=== PATIENT | female | born 1940 | race Caucasian/White ===

== ENCOUNTER 2020-05-19 07:09 | Outpatient (REF) | payer MEDICARE, OTHER, SELFPAY ==
[2020-05-19 07:59] LABS: MANUAL DIFF FLAG NO
[2020-05-19 08:01] LABS: Basophils Percent Auto 0.5 % (0-2); Eosinophils Absolute Auto 0.2 X10*3/uL (0.0-0.4); Eosinophils Percent Auto 2.1 % (0-4); Hematocrit 38.6 % (37-47); Hemoglobin 12.9 g/dl (12.0-16.0); Imm Gran Abs Auto 0.02 X10*3/uL (0.00-0.03); Imm Gran Pct Auto 0.3 % (0.0-0.4); Mean Corpuscular HGB Conc 33.4 g/dl (31.0-35.0); Mean Corpuscular Volume 92.8 fL (80-98); Mean Platelet Volume 10.9 fL (9.4-12.3); Monocytes Absolute Auto 0.7 X10*3/uL (0.1-1.2); Monocytes Percent Auto 8.6 % (2-11); Neutrophils Absolute Auto 4.8 X10*3/uL (2.0-8.3); Neutrophils Percent Auto 62.5 % (45-73); Platelet Count 189 X10*3/uL (160-400); Red Blood Count 4.16 X10*6/uL (4.20-5.50); Red Cell Distribution Width 12.2 % (11.0-16.0); White Blood Count 7.7 X10*3/uL (4.8-10.8)
[2020-05-19 08:29] LABS: Alanine Aminotransferase 16 U/L (0-31); Albumin Level 4.2 g/dL (3.5-5.0); Alkaline Phosphatase 72 U/L (39-117); Anion Gap 14 (12-20); Aspartate Amino Transferase 14 U/L (5-31); Bilirubin Total 0.6 mg/dL (0.0-1.0); Blood Urea Nitrogen 15 mg/dL (9-16); Carbon Dioxide 26 mmol/L (22-29); Chloride 105 mmol/L (96-108); Cholesterol 243 mg/dL; Estimated Glomerular Filt Rate > 60; Glucose Fasting 94 mg/dL (60-99); HDL Cholesterol 78 mg/dL; LDL Cholesterol Calculated 150 mg/dl; Potassium 4.3 mmol/l (3.3-5.1); Sodium 141 mmol/L (135-145); Triglycerides 79 mg/dL
[2020-05-19 08:52] LABS: T4 Thyroxine 6.1 ug/dL (4.5-12.0); Thyroid Stimulating Hormone 1.69 uIU/mL (0.32-4.0); Vitamin D 25-OH Total 46.8 ng/mL (>30)
[2020-05-19 10:09] LABS: Folate 16.3 ng/mL (> or = 4.0); Vitamin B12 1073 pg/mL (200-900)
== END 2020-05-19 07:10 | disposition home or self-care (01) ==
LOC: HO.LAB 07:09
PROVIDERS: PCP Internal Medicine; Visit Provider Internal Medicine
DX: R35.0 Frequency of micturition (principal); E53.8 Deficiency of other specified B group vitamins
CPT/HCPCS: 36415; 80053; 80061; 82306; 82607; 82746; 84436; 84443; 85025

== ENCOUNTER 2020-06-09 09:32 | Outpatient (REF) | payer MEDICARE, OTHER, SELFPAY ==
--- NOTE | 2020-06-09 | MM_ITS ---
EXAMINATION: MM SCREENING DIGITAL BREAST TOMOSYNTHESIS, BILATERAL CLINICAL INFORMATION: Screening. Asymptomatic. The lifetime risk of breast cancer based on the Tyrer-Cuzick Model is 3%. COMPARISON: Mammography: 02/20/2019, 02/05/2018, 12/13/2016 TECHNIQUE: Digital breast tomosynthesis is performed in both the craniocaudal and mediolateral oblique views along with computer-aided detection (CAD). Synthesized 2D images are generated from the tomosynthesis. FINDINGS: There are scattered areas of fibroglandular density (ACR BI-RADS breast composition Category b). Parenchymal pattern is similar to prior studies. Again, there are dermal lesions overlying both breasts. Nodular asymmetry mid upper outer right breast is stable from prior studies. There is no significant mass, architectural abnormality, or abnormal calcifications. No significant changes. MM/MM tomosynthesis screening BI IMPRESSION: No significant changes from prior studies. ASSESSMENT: BI-RADS 2: Benign RECOMMENDATION: Routine annual mammography screening. This patient's information was entered into a reminder system with a target due date for their next mammogram.
== END 2020-06-09 09:33 | disposition home or self-care (01) ==
LOC: HO.MAMMO 09:32
PROVIDERS: PCP Internal Medicine; Visit Provider Internal Medicine
DX: Z12.31 Encounter for screening mammogram for malignant neoplasm of breast (principal)
CPT/HCPCS: 77063; 77067

== ENCOUNTER 2020-11-23 07:14 | Outpatient (REF) | payer MEDICARE, OTHER, SELFPAY ==
[2020-11-23 09:17] LABS: Alanine Aminotransferase 15 U/L (0-31); Albumin Level 4.2 g/dL (3.5-5.0); Alkaline Phosphatase 87 U/L (39-117); Anion Gap 14 (12-20); Aspartate Amino Transferase 16 U/L (5-31); Bilirubin Total 0.5 mg/dL (0.0-1.0); Blood Urea Nitrogen 20 mg/dL (9-16); Calcium 9.4 mg/dL (8.4-10.2); Carbon Dioxide 25 mmol/L (22-29); Chloride 107 mmol/L (96-108); Cholesterol 226 mg/dL; Estimated Glomerular Filt Rate > 60; Glucose Random 91 mg/dL (60-115); HDL Cholesterol 66 mg/dL; LDL Cholesterol Calculated 149 mg/dl; Potassium 4.4 mmol/L (3.3-5.1); Sodium 142 mmol/L (135-145); Total Protein 6.9 g/dL (6.5-8.0); Triglycerides 59 mg/dL
== END 2020-11-23 07:15 | disposition home or self-care (01) ==
LOC: HO.LAB 07:14
PROVIDERS: PCP Internal Medicine; Visit Provider Internal Medicine
DX: E78.00 Pure hypercholesterolemia, unspecified (principal)
CPT/HCPCS: 36415; 80053; 80061

== ENCOUNTER 2020-12-20 08:56 | Outpatient (REF) | payer MEDICARE, OTHER, SELFPAY ==
--- NOTE | ~2020-12-20 | MM_ITS ---
EXAMINATION: BONE DENSITOMETRY CLINICAL INDICATION: Age-related osteoporosis without current pathological fracture. COMPARISON: Previous BD dated 11/11/2018 and remote prior BD dated 03/24/2009. TECHNIQUE: Using a [employer] DXA System (software version: 13.1) manufactured by [employer], dual-energy x-ray absorptiometry was performed of the lumbar spine and left hip. The images are of good technical quality. Summary results are attached. FINDINGS: AP SPINE L1-L4: Current: BMD 0.953 g/cm2, Z-score 0.2, T-score -1.9, osteopenia, 2.2% decrease from previous, 2.2% decrease from remote prior 2008 (<5% change is not significant). Prior 2018: BMD 0.974 g/cm2. 2008: BMD 0.974 g/cm2. LEFT FEMUR, NECK: Current: BMD 0.741 g/cm2, Z-score 0.2, T-score -2.1, osteopenia. Prior 2018: BMD 0.783 g/cm2. 2008: BMD 0.870 g/cm2. LEFT FEMUR, TOTAL: Current: BMD 0.850 g/cm2, Z-score 1.0, T-score -1.2, osteopenia, 7.8% decrease from previous, 17.2% decrease from remote prior 2008 (<5% change is not significant). Prior 2018: BMD 0.922 g/cm2. 2008: BMD 1.027 g/cm2. IDENTIFIED RISK FACTORS: Height loss, menopause. HISTORY OF FRACTURE: None listed. MEDICATIONS: Calcium supplements or multivitamin, vitamin D. MM/XR DEXA axial skeleton IMPRESSION: 1. DIAGNOSIS: Osteopenia based on the lowest T-score value of -2.1 in the femoral neck applying World Health Organization criteria. 2. 10-YEAR FRACTURE RISK PREDICTION, FRAX: Major osteoporotic fracture (clinical spine, forearm, hip or shoulder) 15.4%. Hip fracture 5.0%. 3. Treatment Recommendations: NOF guidelines recommend consideration for treatment in postmenopausal women and men age 50 and older presenting with the following: -A hip or vertebral (clinical or morphometric) fracture. -T-score less than or equal to -2.5 at the femoral neck or spine after appropriate evaluation to exclude secondary causes. -Low bone mass at the hip or spine and a 10-year fracture probability by FRAX of greater than or equal to 3% for hip fracture or greater than or equal to 20% for major osteoporotic fracture based on the [place] adapted WHO algorithm. 4. Other Recommendations: All treatment decisions require clinical judgment and consideration of individual patient factors, including patient preferences, comorbidities, previous drug use, risk factors not captured in the FRAX model (e.g. frailty, falls, vitamin D deficiency, increased bone turnover, interval significant decline in bone density) and possible under or overestimation of fracture risk by FRAX. Additional medical evaluation for secondary cause of low bone mineral density may be appropriate. FUTURE SCAN RECOMMENDATION: People with diagnosed cases of osteoporosis or at high risk for fracture should have regular bone mineral density tests. For patients eligible for Medicare, routine testing is allowed once every 2 years. The testing frequency can be increased to one year for patients who have rapidly progressing disease, those who are receiving or discontinuing medical therapy to restore bone mass, or have additional risk factors.
== END 2020-12-20 08:57 | disposition home or self-care (01) ==
LOC: HO.MAMMO 08:56
PROVIDERS: PCP Internal Medicine; Visit Provider Internal Medicine
DX: Z13.820 Encounter for screening for osteoporosis (principal); M80.00XS Age-related osteoporosis with current pathological fracture, unspecified site, sequela; Z78.0 Asymptomatic menopausal state
CPT/HCPCS: 77080

== ENCOUNTER 2021-02-23 07:20 | Outpatient (REF) | payer MEDICARE, OTHER, SELFPAY ==
[2021-02-23 07:34] LABS: MANUAL DIFF FLAG NO
[2021-02-23 08:33] LABS: Basophils Percent Auto 0.5 % (0-2); Eosinophils Absolute Auto 0.2 X10*3/uL (0.0-0.4); Hematocrit 37.2 % (37-47); Hemoglobin 12.5 g/dl (12.0-16.0); Imm Gran Abs Auto 0.02 X10*3/uL (0.00-0.03); Imm Gran Pct Auto 0.2 % (0.0-0.4); Lymphocytes Percent Auto 25.2 % (20-40); Mean Corpuscular HGB Conc 33.6 g/dl (31.0-35.0); Mean Corpuscular Hemoglobin 30.7 pg (27.0-33.0); Mean Corpuscular Volume 91.4 fL (80-98); Monocytes Absolute Auto 0.7 X10*3/uL (0.1-1.2); Monocytes Percent Auto 8.1 % (2-11); Neutrophils Absolute Auto 5.2 X10*3/uL (2.0-8.3); Platelet Count 169 X10*3/uL (160-400); Red Blood Count 4.07 X10*6/uL (4.20-5.50); Red Cell Distribution Width 12.3 % (11.0-16.0); White Blood Count 8.1 X10*3/uL (4.8-10.8)
[2021-02-23 09:02] LABS: Alanine Aminotransferase 17 U/L (0-31); Albumin Level 4.3 g/dL (3.5-5.0); Alkaline Phosphatase 83 U/L (39-117); Anion Gap 11 (12-20); Aspartate Amino Transferase 20 U/L (5-31); Bilirubin Total 0.5 mg/dL (0.0-1.0); Blood Urea Nitrogen 24 mg/dL (9-16); Calcium 9.4 mg/dL (8.4-10.2); Carbon Dioxide 26 mmol/L (22-29); Chloride 107 mmol/L (96-108); Estimated Glomerular Filt Rate > 60; Glucose Random 90 mg/dL (60-115); Potassium 4.2 mmol/L (3.3-5.1); Sodium 140 mmol/L (135-145)
[2021-02-23 09:26] LABS: Thyroid Stimulating Hormone 1.08 uIU/mL (0.32-4.0)
== END 2021-02-23 07:21 | disposition home or self-care (01) ==
LOC: HO.LAB 07:20
PROVIDERS: PCP Internal Medicine; Visit Provider Nurse Practitioner Family
DX: R00.2 Palpitations (principal)
CPT/HCPCS: 36415; 80053; 84439; 84443; 85025

== ENCOUNTER → 2021-03-03 13:23 | Outpatient (REF) | payer MEDICARE, OTHER, SELFPAY ==
--- NOTE | 2021-03-03 13:27 | ECG_ITS ---
Hook-up date: 2021-03-03 14:07:00 Duration: 47:59:00 Test Indications: PALPITATIONS Medications: 528070 QRS complexes 126 Ventricular ectopics which represent <1 % of total QRS comp. 10764 Supraventricular ectopics which represent 4 % of total QRS comp. * Paced QRS complexs which represent % of total QRS comp. VENTRICULAR ECTOPY 96 Isolated 0 Bigeminal Cycles 12 Couplets 2 Runs 6 Beats in Runs 3 Beats LONGEST at 205 BPM at 17:47:56 2021-03-04 3 Beats FASTEST at 205 BPM at 17:47:56 2021-03-04 SUPRAVENTRICULAR ECTOPY 3201 Isolated 144 Couplets 43 Runs 7378 Beats in Runs 3532 Beats LONGEST at 154 BPM at 13:32:45 2021-03-05 3 Beats FASTEST at 211 BPM at 15:50:31 2021-03-04 HEART RATES 63 MIN at 03:24:07 2021-03-04 82 AVG 210 MAX at 13:08:47 2021-03-05 LONGEST RR 1.5440 secs at 03:22:56 2021-03-04 S-T LEVELS Channel 1 - 128 mm at 14:07:00 2021-03-03 - 128 mm at 14:07:00 2021-03-03 Channel 2 - 128 mm at 14:07:00 2021-03-03 - 128 mm at 14:07:00 2021-03-03 Channel 3 - 128 mm at 03:32:61 -- - 128 mm at 03:32:61 Basic rhythm Normal sinus rhythm No long pause or profound bradycardia One prolonged SVE run, total 3532 beats could suggest PAF Frequent Premature atrial complexes Patient did not report any symptoms in the diary Referred By: Agnes Choe Overread By: PITO GARCIA MD
== END ==
LOC: HO.CARD 13:23
PROVIDERS: PCP Internal Medicine; Visit Provider Nurse Practitioner Family
DX: R00.2 Palpitations (principal)
CPT/HCPCS: 93226

== ENCOUNTER → 2021-04-19 08:48 | Outpatient (BNVA) | payer MEDICARE, OTHER, SELFPAY | PROVIDERS: PCP Internal Medicine; Referring Provider Nurse Practitioner Family; Visit Provider Internal Medicine | DX: I48.0 Paroxysmal atrial fibrillation (principal); I35.0 Nonrheumatic aortic (valve) stenosis; I10 Essential (primary) hypertension; Z79.899 Other long term (current) drug therapy | CPT/HCPCS: 99212 ==

== ENCOUNTER → 2021-05-16 11:36 | Outpatient (REF) | payer MEDICARE, OTHER, SELFPAY ==
--- NOTE | 2021-05-16 11:39 | CA_ITS ---
Transthoracic Echocardiogram Patient (Last, First, Middle): Rosa George, Gender: Female Date of : 1940 Age: 80 Procedure Date: 05/16/2021 Procedure Type: Transthoracic Echocardiogram Location: OP Height: 162.56 cm Weight: 57.15 kg BSA: 1.61 m2 Heart Rate: bpm BP: 142 / 82 mmHg Order Entry Clerk: HOOD Referring MD: Mahesh Pulido MD Air And Water Tester: Prasad Wilson MD Symptoms: I35.0 - Nonrheumatic aortic (valve) stenosis Study Quality: Fair ECG Rhythm: Sinus Conclusions: - 1. Normal LV systolic function with impaired relaxation filling pattern 2. Moderately dilated left atrium 3. Mild aortic stenosis and regurgitation 4. Moderate mitral annular calcification with possible mild mitral stenosis 5. Normal RV systolic pressure 6. No gross pericardial effusion Findings Left Ventricle Normal left ventricular size, thickness, and systolic function. The visually estimated ejection fraction is >70%. Spectral Doppler is indicative of an impaired relaxation filling pattern. Right Ventricle Normal right ventricular cavity size and systolic function. Atria The left atrium is moderately dilated. There is no evidence of interatrial shunt. The right atrium is normal in size. Aortic Valve There is mild calcification of the aortic valve. There is mild thickening of the aortic valve. There is mild aortic valve stenosis. The peak aortic gradient is 29 mmHg.The mean gradient is 14 mmHg. The aortic valve area is 1.77 cm2. There is mild aortic valve regurgitation. Mitral Valve There is moderate anterior and severe posterior mitral leaflet thickening. There is moderate mitral annular calcification. There is no mitral valve regurgitation. There is mild mitral valve stenosis. Pulmonic Valve The pulmonic valve was not well visualized. Tricuspid Valve Likely normal tricuspid valve structure and function. There is mild tricuspid valve regurgitation. The right ventricular systolic pressure is normal. The right ventricular systolic pressure is 37 mmHg. Normal right atrial pressure. Great Vessels All visible segments of the aorta are normal in size. The pulmonary artery was not well visualized. Venous The inferior vena cava is normal in size and collapses greater than 50% with inspiration. Pericardium/Pleural There is no evidence of pericardial effusion. Prior Study Comparison No prior study available for comparison. Measurements 2D Linear Measurements IVSd: 1.19 0.6-0.9/0.6-1.0 cm LVIDd: 3.63 3.9-5.3/4.2-5.9 cm LVIDd Index: 2.25 2.4-3.2/2.2-3.1 cm/m2 LVIDs: 2.06 2.0-3.6 cm LVPWd: 1.07 0.7-1.1 cm Ao Root: 3.00 2.1-3.5 cm LA Diam: 3.40 2.7-3.8/3.0-4.0 cm LAIDs Index: 2.11 1.5-2.3 cm/m2 LV Mass: 162.76 67-162/88-224 g LV Mass Index: 101.10 43-95/49-115 g/m2 LVOT Diam: 1.70 3.0+(-)1.3 cm 2D Systolic Function EF 4C: 76.70 >55% EF 2C: 74.10 >55% EF BiP: 77.50 >55% Mitral Valve MV VTI: 0.49 MV Pk Anibal: 1.99 MV Mn Anibal: 1.16 MV Pk Grad: 16.00 MV Mn Grad: 6.00 MV Pk E: 1.59 MV PK A: 1.79 MV Decel Time: 250.00 E/A: 0.90 E'Lateral: 6.74 E'Medial: 3.15 E/E' Med: 50.50 E/E' Lat: 23.60 PHT: 73.00 MVA PHT: 3.01 MVA Continuity: 1.83 Decel Hand: 6.35 Aortic Valve AoV Pk Anibal: 2.71 AoV Mn Anibal: 1.66 AoV VTI: 0.51 AoV Pk Grad: 29.00 Aov Mn Grad: 14.00 ANGELICA Cont.VTI: 1.77 AI Pk Anibal: 3.87 AI Hand: 1.72 LVOT LVOT Pk Anibal: 2.29 LVOT Mn Anibal: 1.32 LVOT VTI: 0.39 LVOT Pk Grad: 21.00 LVOT Mn Grad: 9.00 LVOT Diam: 1.70 LVOT Area: 2.27 Diastolic Function MV Pk E: 1.59 MV Pk A: 1.79 E/A: 0.90 E'Medial: 3.15 E/E' Med: 50.50 E' Laterial: 6.74 E/E' Lat: 23.60 Right Ventricle TAPSE (mm): 2.32 TVS' Anibal: 16.00 Tricuspid Valve TR Pk Anibal: 2.90 TR Pk Grad: 34.00 RA Press: 3.00 RVSP: 37.00 Great Vessels Aorta Ao Root-2D: 3.00 2.0-3.7 cm Ao Asc: 2.80 2.1-3.4 cm Updated in Other Vendor System with Status of Final Prasad iWlson MD electronically signed on 05/16/2021 4:34:18 PM with status of Final
== END ==
LOC: HO.CARD 11:36
PROVIDERS: PCP Internal Medicine; Visit Provider Internal Medicine
DX: I35.0 Nonrheumatic aortic (valve) stenosis (principal); I48.0 Paroxysmal atrial fibrillation; I10 Essential (primary) hypertension
CPT/HCPCS: 93306; 99212

== ENCOUNTER → 2021-05-23 13:33 | Outpatient (BNVA) | payer MEDICARE, OTHER, SELFPAY | PROVIDERS: PCP Internal Medicine; Referring Provider Internal Medicine; Visit Provider Internal Medicine | DX: I48.0 Paroxysmal atrial fibrillation (principal); I35.0 Nonrheumatic aortic (valve) stenosis; I10 Essential (primary) hypertension; I05.9 Rheumatic mitral valve disease, unspecified; E78.5 Hyperlipidemia, unspecified | CPT/HCPCS: 99212 ==

== ENCOUNTER 2021-06-19 09:22 | Outpatient (REF) | payer MEDICARE, OTHER, SELFPAY ==
--- NOTE | ~2021-06-19 | MM_ITS ---
EXAMINATION: MM SCREENING DIGITAL BREAST TOMOSYNTHESIS, BILATERAL CLINICAL INFORMATION: Screening. Asymptomatic. The lifetime risk of breast cancer based on the Tyrer-Cuzick Model is 3%. COMPARISON: Mammography: 06/09/2020, 02/20/2019, 02/05/2018 TECHNIQUE: Digital breast tomosynthesis is performed in both the craniocaudal and mediolateral oblique views along with computer-aided detection (CAD). Synthesized 2D images are generated from the tomosynthesis. FINDINGS: There are scattered areas of fibroglandular density (ACR BI-RADS breast composition Category b). There are no significant masses, abnormal calcifications, or other abnormalities. Parenchymal pattern is similar to prior studies. Asymmetry mid upper outer right breast is stable. There is no developing density. There are scattered benign calcifications again seen in both breasts, some are ductal secretory and vascular and round. There are bilateral dermal lesions overlying the breasts. MM/MM tomosynthesis screening BI IMPRESSION: No mammographic evidence of malignancy. ASSESSMENT: BI-RADS 2: Benign RECOMMENDATION: Routine annual mammography screening. This patient's information was entered into a reminder system with a target due date for their next mammogram.
== END 2021-06-19 09:23 | disposition home or self-care (01) ==
LOC: HO.MAMMO 09:22
PROVIDERS: PCP Internal Medicine; Visit Provider Internal Medicine
DX: Z12.31 Encounter for screening mammogram for malignant neoplasm of breast (principal)
CPT/HCPCS: 77063; 77067

== ENCOUNTER 2021-10-04 13:40 | Emergency (ER) | payer MEDICARE, OTHER, SELFPAY ==
--- NOTE | ~2021-10-04 | XR_ITS ---
EXAMINATION: LEFT WRIST AND FOREARM X-RAYS CLINICAL INFORMATION: Fall COMPARISON: None TECHNIQUE: 2 views of the left forearm and 4 views of the left wrist FINDINGS: Left wrist: There is a comminuted displaced fracture of the left distal radius. There is volar displacement of the distal radius with respect to the more proximal shaft. Fracture appears intra-articular with the radiocarpal joint. There is some impaction. There is a minimally displaced ulnar styloid fracture. There is arthritis at the first [facility] HOME joint. There is overlying soft tissue swelling. Left forearm: Comminuted impacted displaced intra-articular left distal radius and ulnar styloid fractures. No other fracture. Normal elbow joint. Soft tissue swelling adjacent to the fracture. XR/XR wrist LT min 3V IMPRESSION: Comminuted impacted displaced intra-articular left distal radius fracture. Minimally displaced ulnar styloid fracture.
--- NOTE | ~2021-10-04 | XR_ITS ---
EXAMINATION: XR WRIST, LEFT CLINICAL INFORMATION: Post reduction COMPARISON: X-ray 10/04/2021, 2:24 PM TECHNIQUE: PA, lateral, and oblique views of the left wrist. FINDINGS: Redemonstrated is a comminuted displaced intra-articular fracture of the left distal radius. There is volar displacement of the distal bone with respect to the more proximal shaft. There appears to be impaction and overriding of the fracture fragments. This overall appears similar as compared to previous. Redemonstrated is a mildly displaced ulna styloid fracture. Severe first CMC arthritis. There is soft tissue swelling in the wrist. XR/XR wrist LT 2V IMPRESSION: Comminuted displaced impacted intra-articular distal radial fracture, with no significant interval change in the positioning of the fracture fragments as compared to the prior study from today. Mildly displaced ulna styloid fracture.
--- NOTE | ~2021-10-04 | XR_ITS ---
EXAMINATION: XR WRIST, LEFT CLINICAL INFORMATION: Status post reduction. COMPARISON: Left wrist radiograph done earlier the same day. TECHNIQUE: PA, lateral, and oblique views of the left wrist. FINDINGS: Redemonstration of a comminuted and displaced distal radial fracture with anterior and lateral displacement, similar or slightly increased when compared to the most recent radiographs. Ulnar styloid fracture in unchanged anatomic alignment. Osteophyte arthritis at the triscaphe and first carpometacarpal joints is redemonstrated. Prominent circumferential soft tissue swelling. XR/XR wrist LT 2V IMPRESSION: Demonstration of a comminuted distal radial fracture with similar or slightly increased displacement. Unchanged ulnar styloid fracture.
--- NOTE | ~2021-10-04 | XR_ITS ---
EXAMINATION: LEFT WRIST AND FOREARM X-RAYS CLINICAL INFORMATION: Fall COMPARISON: None TECHNIQUE: 2 views of the left forearm and 4 views of the left wrist FINDINGS: Left wrist: There is a comminuted displaced fracture of the left distal radius. There is volar displacement of the distal radius with respect to the more proximal shaft. Fracture appears intra-articular with the radiocarpal joint. There is some impaction. There is a minimally displaced ulnar styloid fracture. There is arthritis at the first DETENTION joint. There is overlying soft tissue swelling. Left forearm: Comminuted impacted displaced intra-articular left distal radius and ulnar styloid fractures. No other fracture. Normal elbow joint. Soft tissue swelling adjacent to the fracture. XR/XR forearm LT 2V IMPRESSION: Comminuted impacted displaced intra-articular left distal radius fracture. Minimally displaced ulnar styloid fracture.
[2021-10-04 13:47] VITALS: BP 141/54; PULSE 63; RESP 18; TEMP 36.7; O2SAT 98; BMI 22.2
[2021-10-04 15:29] VITALS: BP 153/61; PULSE 88; TEMP 36.8; O2SAT 98
[2021-10-04] MEDS: Lidocaine HCl 2 % MPF 5 ML VIAL SUBCUT ×2 (16:24→16:25)
--- NOTE | 2021-10-04 16:33 | ED_ITS ---
HPI - Fall General Chief Complaint: Fall Stated Complaint: fall - wrist injury Time Seen by Provider: 10/04/21 15:49 Source: patient and family (Family at bedside who confirms the patient's story) Mode of arrival: ambulatory Limitations: no limitations History of Present Illness HPI Narrative: 81-year-old female with a past medical history of hypertension, hypercholesterolemia, atrial fibrillation currently on Eliquis taking as prescribed last took this morning, nonrheumatic aortic stenosis, peripheral neuropathy and osteoporosis presenting to the ED with friend at bedside with complaints of left hand/wrist/forearm pain/swelling/bruising after she tripped over a step and tried to stop her fall from putting her arm out and fell onto her left arm. She denies head injury loss of consciousness. She denies any neck injury, chest injury, chest pain, shortness of breath, any other extremity pain or inability to walk. She reports that this was a mechanical fall she was not having any symptoms prior to the fall. She denies any other symptoms after the fall other than the pain/swelling/bruising to the left hand/wrist/forearm. MD complaint: fall Onset (ago): minute(s) (Prior to arrival) Fall from: standing Fall witnessed: yes, by family Place fall occurred: street (Outdoors) Loss of consciousness: none Prolonged down time: no Symptoms prior to fall: none Context: tripped/slipped Location of injury - extremities: left: forearm and hand Severity: moderate Quality: aching and throbbing Associated symptoms (after fall): other (Only left hand/wrist/forearm pain/swelling/bruising otherwise no other symptoms after the fall.) Related Data Home Medications Medication Instructions Recorded Confirmed calcium carbonate 600 mg calcium 600 mg PO DAILY 02/10/20 07/20/21 (1,500 mg) tablet (Calcium) vit C,E,zinc,copper-ahovp4x 250 1 cap PO DAILY 02/10/20 07/20/21 mg-lutein 5 mg-zeaxanthin 1 mg capsule (Ocuvite Adult 50 Plus) vitamins A,C,O-ldig-rbqokv 14,320 1 cap PO BID 02/10/20 07/20/21 unit-226 mg-200 unit capsule (PreserVision AREDS) Previous Rx's Medication Instructions Recorded apixaban 5 mg tablet (Eliquis) 5 mg PO BID #180 tab 04/19/21 metoprolol succinate 50 mg 50 mg PO DAILY #90 tab 04/19/21 tablet,extended release 24 hr (Toprol XL) hydrochlorothiazide 12.5 mg tablet 12.5 mg PO DAILY #90 tab 05/17/21 rosuvastatin 20 mg tablet (Crestor) 20 mg PO DAILY #90 tab 05/23/21 acetaminophen 500 mg tablet 1,000 mg PO QID PRN #14 tab 10/04/21 (Tylenol Extra Strength) oxycodone 5 mg tablet 5 mg PO Q6H PRN #14 tab 10/04/21 Allergies Allergy/AdvReac Type Severity Reaction Status Date / Time No Known Allergies Allergy Verified 10/04/21 13:46 Review of Systems Review of Systems: Constitutional : No Fever, No Chills ENT/Mouth : No Ear Pain, No Hoarseness, No sore throat Eyes: No Eye Pain, No Swelling, No Redness, No Foreign Body Cardiovascular : No Chest Pain, No SOB Respiratory : No Cough, No Dyspnea Gastrointestinal : No Nausea, No Vomiting, No Diarrhea, No abdominal Pain Genitourinary : No Dysuria, No Hematuria Musculoskeletal : + left hand/wrist/forearm joint pain/swelling/bruising, No Myalgias, No Joint Swelling, no neck or back pain or injury Skin : No Skin lacerations, No rash Neuro : No Weakness, No Numbness, No Paresthesias, No Loss of Consciousness, No Dizziness, No Headache Psych : No Anxiety/Panic, No Depression Heme/Lymph: no easy bruising, no Lymphadenopathy Endocrine : No Polyuria, No Polydipsia Yes all other systems are reviewed and are negative [facility] Past Medical History Attestation statement: The following information was validated with the patient. Medical History Benign hematuria Cellulitis of right lower limb Hypercholesterolemia Hypertension Macular degeneration Osteoporosis Vitamin D deficiency Surgical History H/O eye surgery H/O hemorrhoidectomy History of tonsillectomy Hx of appendectomy Family History Family History Father Cancer Mother Cancer Social History Social History Housing: House Alcohol intake: former Patient Tobacco Use Status: Never used Tobacco e-Cigarette/Vaping Use: Never Used Second Hand Smoke Exposure: No service: No Current occupational status: retired Physical Exam Vital Signs: Vital Signs: Last Vital Signs Temp 98.2 F 10/04/21 15:29 Pulse 88 10/04/21 15:29 Resp 18 10/04/21 13:47 BP 153/61 H 10/04/21 15:29 Pulse Ox 98 10/04/21 15:29 BMI result Body Mass Index 22.2 vital signs have been reviewed as normal and appeared to be correct. Blood pressure 141/54. Heart rate normal. Respiration rate normal. Temperature normal. Oxygen saturation normal. Appearance: Alert. Oriented X3. No acute distress. Head: Normal external exam. Normocephalic. Atraumatic. Eyes: PERRLA. EOMI. Conjunctiva and sclera normal. Eyelids normal. ENT: EAC normal. TM's Normal. No septal hematoma noted. No hemotympanum noted. Pharynx normal. Uvula midline. Moist mucous membranes. No lesions/ulcerations or masses noted on the tongue. Normal voice. No trismus noted. No drooling noted. No muffled voice noted. Neck: Normal inspection. Neck supple. FROM. No adenopathy. Thyroid Normal. No tracheal deviation noted. No crepitus is noted. No meningeal signs. No neck mass noted. No signs of trauma noted. CVS: Normal heart rate and rhythm. Heart sound normal. Pulses normal throughout. No murmurs/rales/gallops. Respiratory: No respiratory distress. Painless inspiration. Breath sounds normal. No wheezes/rales/rhonchi noted. Chest nontender. No crepitus is noted. No signs of trauma noted. No accessory muscle usage noted or decreased air movement noted. No signs of trauma. Abdomen: Soft and nontender. Bowel sounds normal in all 4 quadrants. No distention noted. No organomegaly noted. No visible injury noted. Back: No CVA tenderness. Full range of motion noted. Nontender. No signs of trauma. Patient neuro intact bilaterally and distally on all 4 extremities. Patient's reflexes intact bilaterally and distally on all 4 extremities. No rashes/lesion/induration/fluctuance or signs of infection noted. Skin: Skin warm and dry. Normal skin color. Normal skin turgor. No rashes/lesions/lacerations noted. Extremities: To left anatomical snuffbox/ulnar and radial aspect of the left wrist and distal to mid forearm patient has moderate tenderness palpation/ecchymosis and limited range of motion of the left wrist due to pain on flexion and extension. No obvious ligamentous or tendon injury noted. No laceration noted at this time. Not consistent with septic joint or signs of infection noted at this time. Otherwise all other extremities exhibit normal range of motion nontender. Neuro: Oriented X 3. No motor deficit. No sensory deficit. Reflexes normal. Normal steady gait. No focal neuro deficits noted. CN's II-XII intact bilaterally? Vascular: + radial pulses/+ 2 distal pedal pulses/+2 dorsalis pedis b/l. Normal cap refill. No cyanosis noted to upper extremity nails and lower extremity toes nails. Course Course Course Narrative: 16:20pm - 81-year-old female with a past medical history of hypertension, hypercholesterolemia, atrial fibrillation currently on Eliquis taking as prescribed last took this morning, nonrheumatic aortic stenosis, peripheral neuropathy and osteoporosis presenting to the ED with friend at bedside with c omplaints of left hand/wrist/forearm pain/swelling/bruising after she tripped over a step and tried to stop her fall from putting her arm out and fell onto her left arm. She denies head injury loss of consciousness. She denies any neck injury, chest injury, chest pain, shortness of breath, any other extremity pain or inability to walk. She reports that this was a mechanical fall she was not having any symptoms prior to the fall. She denies any other symptoms after the fall other than the pain/swelling/bruising to the left hand/wrist/forearm. X-ray was obtained while the patient was in the waiting room and revealed left comminuted impacted this place intra-articular left distal radius fracture minimally displaced ulnar styloid fracture otherwise no other acute processes noted. Therefore consulted with orthopedic NOELLE Shea and Dr. Cohen the orthopedic hand surgeon and they recommended reducing the fracture them placing the patient Reevaluation(s) Reevaluation #1: Patient now status post reduction [place] and myself attempted 4 times to reduce the fracture we attempted 3 times with traction and 1 time with the Finger Trap and repeated x-rays. A mild improvement although patient will end up needing possible wrist surgery and she understands this. I sent the images to orthopedic NOELLE Bunch and she reported that at this time she believes it is acceptable and she reported that the patient should be in a splint at the crease of the palm so that the patient can flex her MCPs and they will discuss this case with the patient's PCP/hyperion analyst for medical clearance/surgical clearance for surgery patient with her friend at bedside understand agree this plan. Time: 18:40 Procedures Orthopedic Fracture Reduction Fracture #1: Time Out Performed: Yes Side: left Fracture Reduction Location: radius and ulna Analgesia: hematoma block Technique: direct manipulation, traction/counter-traction, traction splint and finger traps Post Reduction X-rays Demonstrate: acceptable reduction Post-reduction neuro exam: intact Post-reduction vascular exam: intact Splint Applied: Yes Patient Tolerated Procedure: well and no complications Orthopedic Splinting/Casting Injury #1: Side: left Upper Extremity Injury Location: forearm, wrist and hand Upper Extremity Immobilizer: sugar tong splint MDM - Fall Medical Records Attestation: I reviewed the patient's medical records. Imaging Data Left wrist/forearm x-ray: Attestation: I personally reviewed and interpreted this imaging study as follows: Radiologist's impression: FINDINGS: Left wrist: There is a comminuted displaced fracture of the left distal radius. There is volar displacement of the distal radius with respect to the more proximal shaft. Fracture appears intra-articular with the radiocarpal joint. There is some impaction. There is a minimally displaced ulnar styloid fracture. There is arthritis at the first HALFWAY joint. There is overlying soft tissue swelling. Left forearm: Comminuted impacted displaced intra-articular left distal radius and ulnar styloid fractures. No other fracture. Normal elbow joint. Soft tissue swelling adjacent to the fracture. XR/XR forearm LT 2V IMPRESSION: Comminuted impacted displaced intra-articular left distal radius fracture. Minimally displaced ulnar styloid fracture. Critical Care Time Critical Care Time Critical Care Time: Yes Total Critical Care Time: 60 Attestation: I personally attest to this time spent taking care of the patient Discharge Plan Discharge Clinical Impression: Fall, Distal radius fracture, left, Fracture of ulnar styloid Patient Disposition: Home, Self-Care Instructions: Wrist Fracture in Adults (ED), Fall Prevention for Older Adults (ED) Prescriptions: New oxycodone 5 mg tablet 5 mg PO Q6H PRN (Reason: pain) Qty: 14 0RF acetaminophen [Tylenol Extra Strength] 500 mg tablet 1,000 mg PO QID PRN (Reason: fever or pain) Qty: 14 0RF No Action hydrochlorothiazide 12.5 mg tablet 12.5 mg PO DAILY Qty: 90 2RF Ocuvite Adult 50 Plus 250-5-1 mg capsule 1 cap PO DAILY 0RF calcium carbonate [Calcium 600] 600 mg calcium (1,500 mg) tablet 600 mg PO DAILY 0RF PreserVision AREDS [id number],320-226-200 fkow-dz-altz capsule 1 cap PO BID 0RF metoprolol succinate [Toprol XL] 50 mg tablet extended release 24 hr 50 mg PO DAILY Qty: 90 4RF Eliquis 5 mg tablet 5 mg PO BID Qty: 180 4RF rosuvastatin [Crestor] 20 mg tablet 20 mg PO DAILY Qty: 90 3RF Referrals: Po,Clover Brandon MD [Primary Care Provider] - 2 days Malathi Cohen MD [Physician] - 1 day (Call tomorrow to make a follow-up appointment within the next week) Print Language: Czech
== END 2021-10-04 19:16 | disposition home or self-care (01) ==
PROVIDERS: Emergency Provider Emergency Medicine Emergency Medical Services; PCP Internal Medicine
DX: S52.502A Unspecified fracture of the lower end of left radius, initial encounter for closed fracture (principal); S52.612A Displaced fracture of left ulna styloid process, initial encounter for closed fracture; I10 Essential (primary) hypertension; I48.91 Unspecified atrial fibrillation; M79.602 Pain in left arm; W10.9XXA Fall (on) (from) unspecified stairs and steps, initial encounter; Y93.9 Activity, unspecified; Y92.9 Unspecified place or not applicable; Y99.9 Unspecified external cause status; Z79.01 Long term (current) use of anticoagulants; Z79.899 Other long term (current) drug therapy
CPT/HCPCS: 25605; 29105; 73090; 73100; 73110; 99283; 99284

== ENCOUNTER 2021-10-10 09:03 | Outpatient (REF) | payer MEDICARE, OTHER, SELFPAY ==
--- NOTE | ~2021-10-10 | XR_ITS ---
EXAMINATION: XR WRIST, LEFT CLINICAL INFORMATION: Left wrist pain. COMPARISON: 10/04/2021 TECHNIQUE: 3 views of the left wrist through a cast. FINDINGS: There is no significant change in alignment and displacement of comminuted fracture fragments of the distal radius with an intra-articular fracture and displacement of major distal radial fracture fragment in the volar radial direction by approximately 1 cm. There is overriding of the proximal major fracture fragment with an acquired negative ulnar variance. There is a displaced ulnar styloid fracture. There is significant degenerative change of the 1st carpometacarpal joint with sclerosis and spurring. Fine bony detail is obscured by overlying cast. XR/XR wrist LT min 3V IMPRESSION: No significant change in alignment of comminuted intra-articular displaced fracture of the distal left radius. Ulnar styloid fracture.
== END 2021-10-10 09:04 | disposition home or self-care (01) ==
LOC: HO.HOSX 09:03
PROVIDERS: Visit Provider Orthopaedic Surgery
DX: Z01.818 Encounter for other preprocedural examination (principal); S52.502A Unspecified fracture of the lower end of left radius, initial encounter for closed fracture
CPT/HCPCS: 73110; 99202

== ENCOUNTER 2021-10-12 05:56 | Day surgery (SDC) | payer MEDICARE, OTHER, SELFPAY ==
--- NOTE | 2021-10-11 09:54 | P.CONAN_ITS ---
Documented by User: Yeimy Jaffe NP 10/11/21 09:58 HPI - Anesthesia Eval Consult details Narrative: 81yo F for Left Radius Distal Fracture ORIF Eliquis for afib - cardiol OK holding 48 hours preop [facility] Active Problems Active Problems: All Active Problems (Updated 10/11/21 @ 09:13 by Taylor Camejo, RN) Peripheral neuropathy (Acute) Heart palpitations (Acute) PAF (paroxysmal atrial fibrillation) (Acute) Non-rheumatic aortic stenosis (Acute) Essential hypertension (Acute) Medicare annual wellness visit, initial (Acute) Mitral annular calcification (Acute) Other and unspecified hyperlipidemia (Acute) Distal radius fracture, left (Acute) Hypertension (Acute) Osteoporosis (Acute) Hypercholesterolemia (Acute) Past Medical History Medical History Benign hematuria Cellulitis of right lower limb Hypercholesterolemia Hypertension Macular degeneration Osteoporosis Paroxysmal atrial fibrillation Vitamin D deficiency Family History Family History Father Cancer Mother Cancer Surgical History Surgical History H/O eye surgery H/O hemorrhoidectomy History of tonsillectomy Hx of appendectomy Social History Social History Housing: House Alcohol intake: former Patient Tobacco Use Status: Never used Tobacco e-Cigarette/Vaping Use: Never Used Second Hand Smoke Exposure: No Use of substances other than those prescribed or required for medical reasons: No Are you DNR?: No Advance Directives: No Advance Directives Information Provided: Yes Recently lost weight without trying: No service: No Current occupational status: retired Meds Allergies Allergy/AdvReac Type Severity Reaction Status Date / Time No Known Allergies Allergy Verified 10/10/21 11:21 Home Medications Medication Instructions Recorded Confirmed Last Taken Type calcium carbonate 600 mg calcium 600 mg PO DAILY 02/10/20 10/12/21 Unknown History (1,500 mg) tablet (Calcium) vit C,E,zinc,copper-qidey7i 250 1 cap PO DAILY 02/10/20 10/12/21 Unknown History mg-lutein 5 mg-zeaxanthin 1 mg capsule (Ocuvite Adult 50 Plus) vitamins A,C,K-zkdt-vmccsp 14,320 1 cap PO BID 02/10/20 10/12/21 Unknown History unit-226 mg-200 unit capsule (PreserVision AREDS) Exam Exam Date and Time: October 11, 2021 0954 Narrative Narrative: EKG 02/2021 sinus rhythm at 81/Min with RSR' pattern, PVCs Holter 02/2021 Basic rhythm Normal sinus rhythm No long pause or profound bradycardia One prolonged SVE run, total 3532 beats could suggest PAF Frequent Premature atrial complexes Patient did not report any symptoms in the diary Echo 05/2021 Conclusions: -? 1.? Normal LV systolic function with impaired relaxation? ? ? filling pattern? 2.? Moderately dilated left atrium ? 3. Mild aortic stenosis and regurgitation? 4. Moderate mitral annular calcification with possible mild? ? ? mitral stenosis? 5.? Normal RV systolic pressure? 6.? No gross pericardial effusion?? Assessment and Plan Assessment Anesthesia Assessment: Chart Reviewed Documented by User: Yong Rodríguez MD 10/12/21 09:06 [facility] Past Medical History Medical History Benign hematuria Cellulitis of right lower limb Hypercholesterolemia Hypertension Macular degeneration Osteoporosis Paroxysmal atrial fibrillation Vitamin D deficiency Family History Family History Father Cancer Mother Cancer Family history of problems with anesthesia: No Surgical History Surgical History H/O eye surgery H/O hemorrhoidectomy History of tonsillectomy Hx of appendectomy History of Problems with Anesthesia: No Social History Social History Housing: House Alcohol intake: former Patient Tobacco Use Status: Never used Tobacco e-Cigarette/Vaping Use: Never Used Second Hand Smoke Exposure: No Use of substances other than those prescribed or required for medical reasons: No Are you DNR?: No Advance Directives: No Advance Directives Information Provided: Yes Recently lost weight without trying: No service: No Current occupational status: retired Meds Allergies Allergy/AdvReac Type Severity Reaction Status Date / Time No Known Allergies Allergy Verified 10/10/21 11:21 Home Medications Medication Instructions Recorded Confirmed Last Taken Type calcium carbonate 600 mg calcium 600 mg PO DAILY 02/10/20 10/12/21 Unknown History (1,500 mg) tablet (Calcium) vit C,E,zinc,copper-kmmoh6w 250 1 cap PO DAILY 02/10/20 10/12/21 Unknown History mg-lutein 5 mg-zeaxanthin 1 mg capsule (Ocuvite Adult 50 Plus) vitamins A,C,T-xzjw-jstdwt 14,320 1 cap PO BID 02/10/20 10/12/21 Unknown History unit-226 mg-200 unit capsule (PreserVision AREDS) Exam Airway Mallampati Class: II TM Dist: >3cm Neck ROM: Full Loose/Missing/Broken Teeth: Yes Assessment and Plan Assessment Anesthesia Assessment: Anesthesia Plan Discussed Final Anesthetic Review Family History of Problems with Anesthesia: No History of Problems with Anesthesia: No NPO: Yes ASA Class: III Final Preanesthetic Review: No Changes in Pt Med Stat, Meds/Allgs Chart Reviewed, Consent Obtained/Reviewed and Anes Risks/Benef Reviewed Patient Risk: Intermediate Procedure Risk: Low Anesthetic Plan Anesthetic Plan: GA and Regional Block Disposition: Standard PACU
[2021-10-12] VITALS (10 sets, daily range): BP systolic 100–137; BP diastolic 44–57; PULSE 74–99; RESP 16–18; TEMP 36.3–36.9; O2SAT 97–100; BMI 22.3
--- NOTE | ~2021-10-12 | FL_ITS ---
EXAMINATION: XR FLUOROSCOPY WITH IMAGES CLINICAL INFORMATION: Left distal radius ORIF COMPARISON: 10/10/2021 TECHNIQUE: Fluoroscopy performed by Dr. Cohen. Fluoroscopy time: 16.88 seconds DAP: 0.029 Gycm2 Images: 5 FINDINGS: Plate and screw fixation hardware is placed at the distal radius transfixing the previously visualized fracture with near-anatomic alignment. Ulnar styloid fracture again noted. FL/FL guidance in OR IMPRESSION: Intraoperative guidance for internal fixation of distal radius fracture with near-anatomic alignment. Please refer to operative report for further information.
[2021-10-12] MEDS: Lactated Ringers 1,000 ML 100 ML IVCONT (06:47)
--- NOTE | 2021-10-12 07:45 | P.OP_ITS ---
Operative Note Operative Note Date of Service: 10/12/21 Narrative: Operative Note Narrative: Preop diagnosis: 1. Left Distal radius fracture, intra-articular volar To Postop diagnosis: Same Procedure: 1. left Distal radius fracture open reduction internal fixation, 3 part intra- articular Surgeon: Malathi Cohen MD Anesthesia: Mac plus regional block Findings: left intra-articular volar To fracture with volar displacement and proximal migration, additional comminution of the volar cortex Implants: A 3 hole Accu Med volar locking plate, with 5 X 2.3 mm locking pegs/screws, and 3 3.5 mm cortical screws Tourniquet time: 62 minutes EBL: 5.0 ml Specimen: None Drains: None Complications: None Disposition: Brought to the recovery room in stable condition Plan: Follow-up in 10-14 days for wound check, suture removal and postop radiographs The patient will be placed in either a short-arm cast or a volar wrist splint. Encouraged no lifting of anything heavier than a cell phone. Please encourage active and passive range of motion of the digits. Follow-up at 4-5 weeks postop for repeat radiographs. Indications: The patient is a [age] year old woman with a left displaced volar To distal radius fracture . The risks and benefits of operative treatment, including but not limited to risk of damage to blood vessels, nerves, tendons, infection, recurrence, persistent pain or numbness, incomplete resolution of preoperative symptoms, or need for further surgery were discussed with the patient and they wished to proceed with surgery. Procedure: Once consent was obtained patient was brought back to the operating suite and placed in the operating table in a supine position. A regional block was performed by the anesthesia team. Perioperative antibiotics and anesthesia was administered by the anesthesia team. A tourniquet was applied to the proximal aspect of the left upper extremity and the limb was prepped and draped in a standard surgical fashion. The limb was elevated exsanguinated with Esmarch bandage and the tourniquet inflated to 250 mm of mercury for a total tourniquet time of 62 minutes. The FluoroScan was used throughout the case to assess our reduction, and facilitate implant placement. I made an 8 cm longitudinal incision over the distal aspect of the flexor carpi radialis tendon. The incision was made through the skin to the subcutaneous tissue using a 15. Blade. Then carefully dissected down to flexor carpi radialis tendon she tenotomy scissors. The FCR tendon sheath was then incised longitudinally using tenotomy scissors under direct visualization. The FCR tendon was then retracted ulnarly. I then made a longitudinal incision in the volar forearm fascia through the floor of FCR tendon sheath using tenotomy scissors under direct visualization. I identified the interval between the radial artery and the flexor tendons. This interval was developed further with my index finger, releasing some of the muscular fibers of the flexor pollicis longus. A dull weatlander retractor was then placed. I then created an ulnarly based flap of the pronator quadratus by releasing the radial and distal edges using a 15. Blade. A Martínez elevator was used to elevate the pronator quadratus from the volar surface of the distal radius. This then revealed to us our distal radius fracture. it was an intra- articular volar To fracture with volar displacement and approximately 1.5 cm plus of proximal migration. There is also some comminution of the volar cortex. I then tenotomized the brachial radialis tendon at its insertion into the radial styloid to help facilitate our reduction. An open reduction was then performed on our distal radius fracture , including 1 of the larger volar fragments. I then placed a short standard 3 hole Accu Med volar locking plate on the volar surface of the distal radius. I placed a 2 K- wires through the distal aspect of the plate and into the distal radius. this was assessed using fluoroscopic images. I again reduced the distal portion of the distal radius using the volar locking plate as a buttress and secured it to the shaft by placing a 3.5 mm cortical screw through the oval hole in the plate. I was very happy with our reduction and the placement of our plate on fluoroscopic images. I then placed Five X 2.3 mm locking screws/pegs in the distal aspect of the plate and distal radius by 1st drilling bicortically with a 1.8 mm drill bit, measuring with a depth gauge, and placing the appropriate length locking screws/pegs. The placement of our plate and screws was then assessed again using fluoroscopic images. The once satisfied with the placement of the volar locking plate and screws on the distal aspect of the distal radius, 2 additional 3.5 mm cortical screws were placed in the proximal limb of the plate. Final radiographs were then obtained And I was satisfied with our reduction and the placement of all implants.. The DRUJ was assessed and found to be stable on exam. At this point the wound was irrigated with normal saline. The pronator quadratus was reduced back over the volar locking plate using some 3-0 Vicryl suture material. The tourniquet was then deflated and hemostasis was obtained with a brief period of local pressure and bipolar monopolar electrocautery. The subcutaneous layer was then reapproximated using some 4-0 Vicryl suture, and the skin edges were reapproximated using some 5 0 Prolene suture. The wound was then infiltrated with some 0.25% plain Marcaine for postop pain control. A sterile dressing and a short dorsal splint allowing for active flexion and extension of the digits was applied. The patient appears to have tolerated the procedure well and with no complications. All digits were well vascularized conclusion of the case.
--- NOTE | 2021-10-12 07:45 | MHC.SHP ---
Pre-Procedural Eval Section A Date of Service: 10/12/21 The patient is an INPATIENT: No Changes since office visit: No Cold of Flu in the past 2 weeks, No New Medical Problems, No Changes in Medication and No Patient answered all questions The History & Physical has been completed within 30 days and I have reviewed it.: Yes Section B Chief Complaint: Dislocation of distal radioulnar joint of L wrist Allergies: Allergies Allergy/AdvReac Type Severity Reaction Status Date / Time No Known Allergies Allergy Verified 10/10/21 11:21 Plan I have reviewed the history and physical and performed a pertinent physical examination on my patient. No changes have occurred unless specified.
== END 2021-10-12 11:55 | disposition home or self-care (01) ==
PROVIDERS: PCP Internal Medicine; Visit Provider Orthopaedic Surgery
PROC: (CPT 25609; principal; 2021-10-12 07:30)
DX: S52.572A Other intraarticular fracture of lower end of left radius, initial encounter for closed fracture (principal); S52.612A Displaced fracture of left ulna styloid process, initial encounter for closed fracture; W01.0XXA Fall on same level from slipping, tripping and stumbling without subsequent striking against object, initial encounter; Y93.9 Activity, unspecified; Y92.9 Unspecified place or not applicable; Y99.8 Other external cause status; I48.91 Unspecified atrial fibrillation; Z79.01 Long term (current) use of anticoagulants; I10 Essential (primary) hypertension; E78.00 Pure hypercholesterolemia, unspecified; M81.0 Age-related osteoporosis without current pathological fracture; E55.9 Vitamin D deficiency, unspecified; H35.30 Unspecified macular degeneration; Z79.899 Other long term (current) drug therapy; Z98.890 Other specified postprocedural states
CPT/HCPCS: 25609; C1713; C1769; J0690; J1100; J2370; J2405; J2795

== ENCOUNTER 2021-10-14 07:46 | Inpatient (IN) | payer MEDICARE, OTHER, SELFPAY ==
--- NOTE | 2021-10-14 | ECG_ITS ---
Test Reason : REPEAT Blood Pressure : / mmHG Vent. Rate : 086 BPM Atrial Rate : 086 BPM P-R Int : 138 ms QRS Dur : 090 ms QT Int : 380 ms P-R-T Axes : 060 033 036 degrees QTc Int : 454 ms Normal sinus rhythm Possible Left atrial enlargement Nonspecific ST abnormality Abnormal ECG When compared with ECG of 14-OCT-2021 08:11, No significant change was found Referred By: Katie Garcia Electronically Signed By:LANCE PICKENS
--- NOTE | ~2021-10-14 | XR_ITS ---
EXAMINATION: XR CHEST CLINICAL INFORMATION: Elevated troponin COMPARISON: None TECHNIQUE: AP portable view of the chest was obtained. FINDINGS: There is parenchymal disease seen within the left lower lobe as well as what appears be a small effusion. There appears to be some redistribution of vasculature to the upper lobes. Faint density seen at the right base likely related to atelectasis. Heart normal size. No evidence of pulmonary edema. No pneumothorax. XR/XR chest 1V IMPRESSION: Left lower lobe disease with probable small effusion.
[2021-10-14 07:49] VITALS: BP 141/87; PULSE 100; RESP 18; TEMP 36.4; O2SAT 98; BMI 22.3
--- NOTE | 2021-10-14 07:58 | ED_ITS ---
HPI - General Adult General Chief complaint: General Medical Stated complaint: weakness/nausea post surgery Time Seen by Provider: 10/14/21 07:52 Source: patient and family (Daughter) Mode of arrival: ambulatory History of Present Illness HPI narrative: 81-year-old female with history of atrial fibrillation and had repair of dislocated distal radial ulnar joint of the left wrist on 10/12. Patient now reports that she has taken 3 treatments pain medication and as per the daughter her mother has felt weak and nauseous and was noted to be maximal yesterday evening approximately 3 hours afterwards. She denies any speech difficulties a nd otherwise denies fevers, chills, shortness of breath, palpitations/racing heart and patient is noted to be atrial fibrillation on Eliquis. She has been off of the Eliquis and was due to start this morning. Patient currently denies any dizziness, headache and states that her weakness is much improved since yesterday and she is no longer nauseous. She denies any urinary symptoms. Related Data Home Medications Medication Instructions Recorded Confirmed calcium carbonate 600 mg calcium 600 mg PO DAILY 02/10/20 10/12/21 (1,500 mg) tablet (Calcium) vit C,E,zinc,copper-kwkdy4o 250 1 cap PO DAILY 02/10/20 10/12/21 mg-lutein 5 mg-zeaxanthin 1 mg capsule (Ocuvite Adult 50 Plus) vitamins A,C,P-spes-gixxsx 14,320 1 cap PO BID 02/10/20 10/12/21 unit-226 mg-200 unit capsule (PreserVision AREDS) Previous Rx's Medication Instructions Recorded apixaban 5 mg tablet (Eliquis) 5 mg PO BID #180 tab 04/19/21 metoprolol succinate 50 mg 50 mg PO DAILY #90 tab 04/19/21 tablet,extended release 24 hr (Toprol XL) hydrochlorothiazide 12.5 mg tablet 12.5 mg PO DAILY #90 tab 05/17/21 rosuvastatin 20 mg tablet (Crestor) 20 mg PO DAILY #90 tab 05/23/21 acetaminophen 500 mg tablet 1,000 mg PO QID PRN #14 tab 10/04/21 (Tylenol Extra Strength) oxycodone 5 mg tablet 5 mg PO Q6H PRN #14 tab 10/04/21 hydrocodone 5 mg-acetaminophen 325 1 - 2 tab PO Q6H PRN #30 tab 10/12/21 mg tablet Allergies Allergy/AdvReac Type Severity Reaction Status Date / Time No Known Allergies Allergy Verified 10/10/21 11:21 Review of Systems Review of Systems: Pertinent positives and negatives as stated in HPI 10 point review of systems is otherwise negative. [facility] Past Medical History Source: nursing notes reviewed Medical History Benign hematuria Cellulitis of right lower limb Hypercholesterolemia Hypertension Macular degeneration Osteoporosis Paroxysmal atrial fibrillation Vitamin D deficiency Surgical History H/O eye surgery H/O hemorrhoidectomy History of tonsillectomy Hx of appendectomy Family History Family History Father Cancer Mother Cancer Social History Social History Housing: House Alcohol intake: former Patient Tobacco Use Status: Never used Tobacco e-Cigarette/Vaping Use: Never Used Second Hand Smoke Exposure: No Advance Directives: Yes Advance Directives Information Provided: No Advance Directives on File: No service: No Current occupational status: retired Physical Exam ED Vital Signs: Vital Signs - 24 hr 10/14/21 07:49 Temperature 97.6 F Pulse Rate 100 Respiratory Rate 18 Blood Pressure 141/87 H Pulse Oximetry 98 BMI result Body Mass Index 22.3 VITAL SIGNS: Reviewed. GENERAL: Well developed, well nourished, in no acute distress. HEAD: Normocephalic/atraumatic EYES: PERRLA, EOMI EARS: Ext canals without abnormality OROPHARYNX: no oral lesions noted, posterior pharynx clear LUNGS: Normal breath sounds. No adventitious sounds or accessory muscle use. SpO2<98> CARDIOVASCULAR: Regular rate and rhythm without noted murmurs, no JVD or lower extremity edema. ABDOMEN: Soft, non-tender, non-distended with bowel sounds. No rigidity. No guarding. No palpable masses or hernias noted MUSCULOSKELETAL: No tenderness, deformities, or effusions noted on gross inspection. EXTREMITIES: No cyanosis, clubbing or edema; left upper extremity: In splint and arm sling, sensation intact, cap refill less than 3 seconds, dressing is loose but digits are slightly edematous with noted ecchymosis consistent with recent surgery. SKIN: Inspection of the skin reveals no rashes, ulcerations, jaundice, pallor, or petechiae. NEUROLOGIC: Alert and oriented x 3. Strength and sensation to light touch were grossly intact x 4, nonfocal Course Course Course Narrative: 81-year-old female with history and clinical presentation suggestive of medication side effects, but given age and underlying medical conditions will rule out infection, anemia. Review of all investigations negative for acute findings other than noted elevation troponin without acute EKG changes, repeat troponin exceeded delta 50%, patient remains asymptomatic for chest pain. I discussed the case with cardiology who recommends admission, starting heparin, trending troponins. I discussed case with the inpatient hospitalist who accepts admission and patient will be admitted for NSTEMI Reevaluation(s) Reevaluation #1: Informed that patient's troponin is-290, but patient has no chest pain or palpitations or shortness of breath. Will repeat troponin again. Time: 10:08 Medical Decision Making Lab Data Result diagrams: 10/14/21 08:31 10/14/21 08:31 Labs: Lab Results 10/14/21 10/14/21 10/14/21 Range/Units 08:31 08:31 08:31 WBC 12.9 H (4.8-10.8) X10*3/uL RBC 3.51 L (4.20-5.50) X10*6/uL Hgb 10.8 L (12.0-16.0) g/dl Hct 32.9 L (37.0-47.0) % MCV 93.7 (80.0-98.0) fL MCH 30.8 (27.0-33.0) pg MCHC 32.8 (31.0-35.0) g/dl RDW 13.2 (11.0-16.0) % Plt Count 182 (160-400) X10*3/uL MPV 10.6 (9.4-12.3) fL Immature Gran % (Auto) 0.3 (0.0-0.4) % Neut % (Auto) 87.8 H (45-73) % Lymph % (Auto) 6.7 L (20-40) % [place] % (Auto) 5.0 (2-11) % Eos % (Auto) 0.1 (0-4) % Baso % (Auto) 0.1 (0-2) % Lymph # (Auto) 0.9 L (1.2-4.9) X10*3/uL [place] # (Auto) 0.6 (0.1-1.2) X10*3/uL Eos # (Auto) 0.0 (0.0-0.4) X10*3/uL Baso # (Auto) 0.0 (0.0-0.2) X10*3/uL Abs Immat Gran (auto) 0.04 H (0.00-0.03) X10*3/uL Absolute Neuts (auto) 11.3 H (2.0-8.3) x10*3/uL Absolute Nucleated RBC 0.000 (0.0-0.012) X10*3/uL Nucleated RBC % (auto) 0.0 (0.0-0.2) /100WBC PT 11.4 (9.9-13.0) SEC INR 1.0 (0.9-1.1) Sodium 140 (135-145) mmol/L Potassium 4.3 (3.3-5.1) mmol/L Chloride 107 (96-108) mmol/L Carbon Dioxide 23 (22-29) mmol/L Anion Gap 14 (12-20) BUN 23 H (9-16) mg/dL Creatinine 0.83 (0.5-1.4) mg/dL Estim Creat Clear Calc 43.9 Estimated GFR > 60 Random Glucose 134 H (60-115) mg/dL Calcium 9.0 (8.4-10.2) mg/dL Total Bilirubin 0.5 (0.0-1.0) mg/dL AST 19 (5-31) U/L ALT 13 (0-31) U/L Alkaline Phosphatase 77 (39-117) U/L Troponin I High Sens (<3.5-17.0) ng/L Total Protein 6.3 L (6.5-8.0) g/dL Albumin 3.7 (3.5-5.0) g/dL Urine Color Urine Appearance Urine pH (5.0-8.0) Ur Specific [place] (1.005-1.025) Urine Protein (NEG-TRACE) MG/DL Urine Glucose (UA) (NEG) MG/DL Urine Ketones (NEG) MG/DL Urine Blood (NEG) Urine Nitrite (NEG) Ur Leukocyte Esterase (NEG) Urine RBC (0) /HPF Urine WBC (0-4) /HPF Ur Squamous Epith Cells /LPF Urine Bacteria /LPF Urine Mucus /LPF 10/14/21 10/14/21 10/14/21 Range/Units 08:31 09:32 10:19 WBC (4.8-10.8) X10*3/uL RBC (4.20-5.50) X10*6/uL Hgb (12.0-16.0) g/dl Hct (37.0-47.0) % MCV (80.0-98.0) fL MCH (27.0-33.0) pg MCHC (31.0-35.0) g/dl RDW (11.0-16.0) % Plt Count (160-400) X10*3/uL MPV (9.4-12.3) fL Immature Gran % (Auto) (0.0-0.4) % Neut % (Auto) (45-73) % Lymph % (Auto) (20-40) % [place] % (Auto) (2-11) % Eos % (Auto) (0-4) % Baso % (Auto) (0-2) % Lymph # (Auto) (1.2-4.9) X10*3/uL [place] # (Auto) (0.1-1.2) X10*3/uL Eos # (Auto) (0.0-0.4) X10*3/uL Baso # (Auto) (0.0-0.2) X10*3/uL Abs Immat Gran (auto) (0.00-0.03) X10*3/uL Absolute Neuts (auto) (2.0-8.3) x10*3/uL Absolute Nucleated RBC (0.0-0.012) X10*3/uL Nucleated RBC % (auto) (0.0-0.2) /100WBC PT (9.9-13.0) SEC INR (0.9-1.1) Sodium (135-145) mmol/L Potassium (3.3-5.1) mmol/L Chloride (96-108) mmol/L Carbon Dioxide (22-29) mmol/L Anion Gap (12-20) BUN (9-16) mg/dL Creatinine (0.5-1.4) mg/dL Estim Creat Clear Calc Estimated GFR Random Glucose (60-115) mg/dL Calcium (8.4-10.2) mg/dL Total Bilirubin (0.0-1.0) mg/dL AST (5-31) U/L ALT (0-31) U/L Alkaline Phosphatase (39-117) U/L Troponin I High Sens 290.3 H* 403.2 H* (<3.5-17.0) ng/L Total Protein (6.5-8.0) g/dL Albumin (3.5-5.0) g/dL Urine Color YELLOW Urine Appearance HAZY Urine pH 5.5 (5.0-8.0) Ur Specific [place] 1.025 (1.005-1.025) Urine Protein NEG (NEG-TRACE) MG/DL Urine Glucose (UA) NEG (NEG) MG/DL Urine Ketones NEG (NEG) MG/DL Urine Blood 2+ H (NEG) Urine Nitrite NEG (NEG) Ur Leukocyte Esterase NEG (NEG) Urine RBC 1-4 (0) /HPF Urine WBC 0 (0-4) /HPF Ur Squamous Epith Cells 1+ /LPF Urine Bacteria NONE /LPF Urine Mucus 2+ /LPF ECG Data Attestation: I personally reviewed and interpreted this ECG as follows: Prior ECG tracings: not available for review Interpretation: NSR, HR-91, no STEMI, CT/QRS/QTC is within normal limits. 1054: NSR, HR-86, no STEMI, there are noted changes in the precordial leads, CT/QRS/QTC are within normal limits. Critical Care Time Critical Care Time Critical Care Time: Yes Total Critical Care Time: 30 Attestation: I personally attest to this time spent taking care of the patient. Discharge Plan Discharge Clinical Impression: Non-ST elevation [place] (NSTEMI), Hypertension, A-fib Patient Disposition: Admitted As Inpatient
--- NOTE | 2021-10-14 08:11 | ECG_ITS ---
Test Reason : cp Blood Pressure : / mmHG Vent. Rate : 091 BPM Atrial Rate : 091 BPM P-R Int : 136 ms QRS Dur : 084 ms QT Int : 364 ms P-R-T Axes : 059 031 039 degrees QTc Int : 447 ms Normal sinus rhythm Normal ECG No previous ECGs available Referred By: Sarah Jacobsen Electronically Signed By:LANCE PICKENS
[2021-10-14 08:37] LABS: MANUAL DIFF FLAG NO
[2021-10-14 08:38] LABS: Basophils Percent Auto 0.1 % (0-2); Eosinophils Percent Auto 0.1 % (0-4); Hematocrit 32.9 % (37.0-47.0); Hemoglobin 10.8 g/dl (12.0-16.0); Imm Gran Abs Auto 0.04 X10*3/uL (0.00-0.03); Imm Gran Pct Auto 0.3 % (0.0-0.4); Lymphocytes Absolute Auto 0.9 X10*3/uL (1.2-4.9); Lymphocytes Percent Auto 6.7 % (20-40); Mean Corpuscular HGB Conc 32.8 g/dl (31.0-35.0); Mean Corpuscular Hemoglobin 30.8 pg (27.0-33.0); Mean Corpuscular Volume 93.7 fL (80.0-98.0); Mean Platelet Volume 10.6 fL (9.4-12.3); Monocytes Absolute Auto 0.6 X10*3/uL (0.1-1.2); Neutrophils Absolute Auto 11.3 x10*3/uL (2.0-8.3); Neutrophils Percent Auto 87.8 % (45-73); Platelet Count 182 X10*3/uL (160-400); Red Blood Count 3.51 X10*6/uL (4.20-5.50); Red Cell Distribution Width 13.2 % (11.0-16.0); White Blood Count 12.9 X10*3/uL (4.8-10.8)
[2021-10-14 08:44] LABS: Prothrombin Time 11.4 SEC (9.9-13.0)
[2021-10-14 08:55] LABS: Alanine Aminotransferase 13 U/L (0-31); Albumin Level 3.7 g/dL (3.5-5.0); Alkaline Phosphatase 77 U/L (39-117); Anion Gap 14 (12-20); Aspartate Amino Transferase 19 U/L (5-31); Bilirubin Total 0.5 mg/dL (0.0-1.0); Blood Urea Nitrogen 23 mg/dL (9-16); Carbon Dioxide 23 mmol/L (22-29); Chloride 107 mmol/L (96-108); Creatinine Clr Calc Pharmacy 43.9; Estimated Glomerular Filt Rate > 60; Glucose Random 134 mg/dL (60-115); Potassium 4.3 mmol/L (3.3-5.1); Sodium 140 mmol/L (135-145); Total Protein 6.3 g/dL (6.5-8.0)
--- NOTE | 2021-10-14 09:38 | PC.NURSE ---
pt awaiting ua results. pt reports i feel better is tolerating po fluids with no difficultly
[2021-10-14 09:44] LABS: Appearance Urine HAZY; Color Urine YELLOW; Glucose Urine UA NEG (NEG); Leukocyte Esterase Urine NEG (NEG); Nitrite Urine NEG (NEG); PH 5.5 (5.0-8.0); Specific Gravity - Urine 1.025 (1.005-1.025); UACC Culture Trigger NO; Urine Blood 2+ (NEG); Urine Ketones NEG (NEG); Urine Protein NEG (NEG-TRACE)
[2021-10-14 09:51] LABS: WBC Urine 0 /HPF (0-4)
[2021-10-14 09:52] LABS: Mucus Urine 2+ /LPF; Squamous Epithelial Cell Urine 1+ /LPF
[2021-10-14 10:06] LABS: Troponin-I High Sensitivity 290.3 ng/L (<3.5-17.0)
--- NOTE | 2021-10-14 10:10 | PC.NURSE ---
Critical lab has been reported. pt has denies chest discomfort, dizziness or sob while in er. repeat trop ordered.
[2021-10-14 10:48] LABS: Troponin-I High Sensitivity 403.2 ng/L (<3.5-17.0)
--- NOTE | 2021-10-14 10:56 | ECG_ITS ---
Test Reason : WEAKNESS Blood Pressure : / mmHG Vent. Rate : 103 BPM Atrial Rate : 103 BPM P-R Int : 126 ms QRS Dur : 086 ms QT Int : 370 ms P-R-T Axes : 056 045 053 degrees QTc Int : 484 ms Sinus tachycardia Nonspecific T wave abnormality Abnormal ECG No previous ECGs available Referred By: Sarah Jacobsen Electronically Signed By:PITO GARCIA MD
--- NOTE | 2021-10-14 10:56 | PC.NURSE ---
repeat trop is resulted, md sosa aware. pt is denying any symptom at this time specificlly chest discomfort or sob. cardiology has been contacted.
[2021-10-14 11:18] LABS: Hematocrit 33.1 % (37.0-47.0); Hemoglobin 10.7 g/dl (12.0-16.0); Mean Corpuscular HGB Conc 32.3 g/dl (31.0-35.0); Mean Corpuscular Hemoglobin 30.2 pg (27.0-33.0); Mean Corpuscular Volume 93.5 fL (80.0-98.0); Mean Platelet Volume 10.7 fL (9.4-12.3); Platelet Count 185 X10*3/uL (160-400); Red Blood Count 3.54 X10*6/uL (4.20-5.50); Red Cell Distribution Width 13.1 % (11.0-16.0); White Blood Count 14.2 X10*3/uL (4.8-10.8)
[2021-10-14 11:24] LABS: Prothrombin Time 11.5 SEC (9.9-13.0)
[2021-10-14 11:26] LABS: PTT Heparin Drip 26.9 SEC (53-77.9)
[2021-10-14 11:29] VITALS: BMI 22.4
[2021-10-14 11:32] LABS: Partial Thromboplastin Time 27.3 SEC (24.1-38.0)
--- NOTE | 2021-10-14 11:33 | PC.NURSE ---
this rn attempted 20 ga in r bidept whic infiltrated. 22 ga iv placed r lower arm. pt L arm in cast not available for iv access.
[2021-10-14 11:46] LABS: COVID-19 Test Negative (Negative); IDNOW Serial# 9DB6401D
[2021-10-14] MEDS: Heparin Sodium,Porcine 5,000 UNIT/ML VIAL 3500 UNIT IVPUSH (11:52)
[2021-10-14] MEDS: Heparin Sodium,Porcine/1/2NS 25,000 UNIT/250 ML IV.SOLN 6.91 UNIT IVCONT ×2 (11:54→13:24)
--- NOTE | 2021-10-14 13:05 | P.HPHOSP_ITS ---
History of Present Illness Date of Service: 10/14/21 Attending physician on admission: Katie Garcia Chief Complaint: weakness and nausea 81-year-old female patient with past medical history of hypertension, hypercholesterolemia, atrial fibrillation on Eliquis, history of peripheral neuropathy, osteoporosis and nonrheumatic aortic stenosis recently tripped over a step and fell down without head injury or loss of consciousness and diagnosed to have distal radial and ulnar fracture status post open reduction and internal fixation on 10/12/21, patient came in today accompanied by her daughter due to weakness and nausea that started yesterday associated with palpitation, she denied any chest pain, no shortness of breath, in the ER patient admitted that her nausea and weakness has improved and has no palpitation, workup in the emergency room showed elevated WBC count 12,900, is stable hematocrit, stable electrolytes renal function, liver enzymes however she was noted to have an elevated troponin of 290, EKG showed no acute ischemic changes patient in normal sinus rhythm repeat troponin bumped up to 403, ER physician spoke with Dr. Pelaez he recommended to admit patient and to place her on heparin since her Eliquis is on hold due to recent surgery and was due to be started this morning, at baseline patient ambulates without assistive devices fairly active has no history chest pain with activity, is compliant with her home medications including metoprolol and Coreg. Review of Systems Review of Systems: General no headache no dizziness no fever chills. CVS no chest pain, no palpitation. Respiratory no cough ,no sob Gastrointestinal no nausea no vomiting, no abdominal pain no urgency, no frequency Yes all other systems are reviewed and are negative [facility] Medical History Benign hematuria Cellulitis of right lower limb Hypercholesterolemia Hypertension Macular degeneration Osteoporosis Paroxysmal atrial fibrillation Vitamin D deficiency Family History Father Cancer Mother Cancer Surgical History H/O eye surgery H/O hemorrhoidectomy History of tonsillectomy Hx of appendectomy Social History Housing: House Alcohol intake: former Patient Tobacco Use Status: Never used Tobacco e-Cigarette/Vaping Use: Never Used Second Hand Smoke Exposure: No Advance Directives: Yes Advance Directives Information Provided: No Advance Directives on File: No service: No Current occupational status: retired Meds Allergies Allergy/AdvReac Type Severity Reaction Status Date / Time No Known Allergies Allergy Verified 10/10/21 11:21 Active Medications: Current Medications Heparin Sodium (Porcine) (Heparin Sodium,Porcine 5,000 Unit/Ml Vial) 2,300 unit 40 unit/kg (2300 unit) IVPUSH PROTOCOL BOLUS PRN; Protocol PRN Reason: 40 unit/kg - Heparin Protocol Heparin Sodium (Porcine) (Heparin Sodium,Porcine 5,000 Unit/Ml Vial) 4,600 unit 80 unit/kg (4600 unit) IVPUSH PROTOCOL BOLUS PRN; Protocol PRN Reason: 80 unit/kg - Heparin Protocol Heparin Sodium/Sodium Chloride () 25,000 unit in 250 mls @ 0 mls/hr IVCONT .Q0M [place]; Protocol Home Medications Medication Instructions Recorded Confirmed Last Taken Type calcium carbonate 600 mg calcium 600 mg PO DAILY 02/10/20 10/14/21 Unknown History (1,500 mg) tablet (Calcium) vit C,E,zinc,copper-raviu3e 250 1 cap PO DAILY 02/10/20 10/14/21 Unknown History mg-lutein 5 mg-zeaxanthin 1 mg capsule (Ocuvite Adult 50 Plus) vitamins A,C,Z-ojfc-xtuzqj 14,320 1 cap PO BID 02/10/20 10/14/21 Unknown History unit-226 mg-200 unit capsule (PreserVision AREDS) pravastatin 20 mg tablet 1 tab PO BEDTIME 10/14/21 10/14/21 Unknown History Physical Exam Vital Signs and Narrative: Vital Signs: Last Vital Signs Temp 97.6 F 10/14/21 07:49 Pulse 100 10/14/21 07:49 Resp 18 10/14/21 07:49 BP 141/87 H 10/14/21 07:49 Pulse Ox 98 10/14/21 07:49 BMI result Body Mass Index 22.4 Const: Other: General awake alert x3, no acute distress. HEENT PERRLA Neck supple no JVD. CVS regular rate rhythm, Respiratory lungs clear to auscultation, no respiratory distress, no wheeze, no rhonchi. Gastrointestinal abdomen soft, nontender, bowel sounds audible lower Extremities no edema. left upper extremity in sling Neuro nonfocal , speech clear. Skin no rash psych appropriate affect Results Labs CBC and Chem 7: 10/15/21 05:51 10/14/21 08:31 Labs: Laboratory Results - last 24 hr 10/14/21 10/14/21 10/14/21 08:31 08:31 08:31 MCV 93.7 MCH 30.8 MCHC 32.8 RDW 13.2 Plt Count 182 MPV 10.6 Immature Gran % (Auto) 0.3 Neut % (Auto) 87.8 H Lymph % (Auto) 6.7 L [place] % (Auto) 5.0 Eos % (Auto) 0.1 Baso % (Auto) 0.1 Lymph # (Auto) 0.9 L [place] # (Auto) 0.6 Eos # (Auto) 0.0 Baso # (Auto) 0.0 Abs Immat Gran (auto) 0.04 H Absolute Neuts (auto) 11.3 H Absolute Nucleated RBC 0.000 Nucleated RBC % (auto) 0.0 PT 11.4 INR 1.0 APTT 27.3 aPTT Heparin Protocol Anion Gap 14 Estim Creat Clear Calc 43.9 Estimated GFR > 60 Random Glucose 134 H Calcium 9.0 Total Bilirubin 0.5 AST 19 ALT 13 Alkaline Phosphatase 77 Troponin I High Sens Total Protein 6.3 L Albumin 3.7 Urine Color Urine Appearance Urine pH Ur Specific [place] Urine Protein Urine Glucose (UA) Urine Ketones Urine Blood Urine Nitrite Ur Leukocyte Esterase Urine RBC Urine WBC Ur Squamous Epith Cells Urine Bacteria Urine Mucus COVID-19 (TRANG) COVID-19 Clin Com 10/14/21 10/14/21 10/14/21 08:31 09:32 10:19 MCV MCH MCHC RDW Plt Count MPV Immature Gran % (Auto) Neut % (Auto) Lymph % (Auto) [place] % (Auto) Eos % (Auto) Baso % (Auto) Lymph # (Auto) [place] # (Auto) Eos # (Auto) Baso # (Auto) Abs Immat Gran (auto) Absolute Neuts (auto) Absolute Nucleated RBC Nucleated RBC % (auto) PT INR APTT aPTT Heparin Protocol Anion Gap Estim Creat Clear Calc Estimated GFR Random Glucose Calcium Total Bilirubin AST ALT Alkaline Phosphatase Troponin I High Sens 290.3 H* 403.2 H* Total Protein Albumin Urine Color YELLOW Urine Appearance HAZY Urine pH 5.5 Ur Specific [place] 1.025 Urine Protein NEG Urine Glucose (UA) NEG Urine Ketones NEG Urine Blood 2+ H Urine Nitrite NEG Ur Leukocyte Esterase NEG Urine RBC 1-4 Urine WBC 0 Ur Squamous Epith Cells 1+ Urine Bacteria NONE Urine Mucus 2+ COVID-19 (TRANG) COVID-19 Clin Com 10/14/21 10/14/21 10/14/21 11:10 11:10 11:11 MCV 93.5 MCH 30.2 MCHC 32.3 RDW 13.1 Plt Count 185 MPV 10.7 Immature Gran % (Auto) Neut % (Auto) Lymph % (Auto) [place] % (Auto) Eos % (Auto) Baso % (Auto) Lymph # (Auto) [place] # (Auto) Eos # (Auto) Baso # (Auto) Abs Immat Gran (auto) Absolute Neuts (auto) Absolute Nucleated RBC 0.000 Nucleated RBC % (auto) 0.0 PT 11.5 INR 1.0 APTT aPTT Heparin Protocol 26.9 L Anion Gap Estim Creat Clear Calc Estimated GFR Random Glucose Calcium Total Bilirubin AST ALT Alkaline Phosphatase Troponin I High Sens Total Protein Albumin Urine Color Urine Appearance Urine pH Ur Specific [place] Urine Protein Urine Glucose (UA) Urine Ketones Urine Blood Urine Nitrite Ur Leukocyte Esterase Urine RBC Urine WBC Ur Squamous Epith Cells Urine Bacteria Urine Mucus COVID-19 (TRANG) Negative COVID-19 Clin Com See Note Assessment and Plan (1) PAF (paroxysmal atrial fibrillation): Status: Acute (2) Non-rheumatic aortic stenosis: Status: Acute (3) Essential hypertension: Status: Acute (4) Non-ST elevation [place] (NSTEMI): Status: Acute (5) Hypertension: Status: Acute Plan 81-year-old female patient with past medical history of hypertension, hyperlipidemia, paroxysmal atrial fibrillation on Eliquis currently on hold due to recent left hand surgery, history of non rheumatic aortic stenosis peripheral neuropathy presented to [facility] due to symptoms of weakness nausea and palpitation that started yesterday morning, present all symptoms of nausea weakness and palpitations have resolved patient workup revealed elevated troponin and leukocytosis patient denies URI symptoms, denies chest pain, no palpitations no shortness of breath no urinary symptoms patient is being admitted to [facility] with a diagnosis of elevated troponin. Non ST elevation [place], multiple risk factors hypertension hyperlipidemia, age, question secondary to atrial fibrillation with symptoms of palpitation versus underlying ischemia will trend cardiac enzymes obtain echocardiogram check lipid profile will place on IV heparin, continue beta blockers, aspirin and statin echo from June 03 showed normal EF 70% impaired relaxation, mild aortic valve stenosis cardiology eval paroxysmal atrial fibrillation currently normal sinus rhythm continue beta blockers hold Eliquis since patient on heparin leukocytosis likely reactive, patient asymptomatic will follow clinical course and CBC hypertension stable blood pressure continue metoprolol code status DNR DVT prophylaxis on IV heparin patient will need two night inpatient hospitalization due to non ST-elevation ND will need IV heparin drip for 48 hours and further ischemic workup as per Cardiology. Quality Stroke Does the patient have a stroke diagnosis?: No VTE Prior VTE?: No VTE Risk Level:: Medical - moderate - high VTE Device Contraindication: Treatment Not Indicated VTE Drug Contraindication: N/A - Med Ordered
--- NOTE | 2021-10-14 13:27 | PC.NURSE ---
pt continues to deny any complaint, remains nsr on monitor. heparin order was changed to refelct low dose protocol, previous rate did no require change and active drip was rescanned.
[2021-10-14 13:38] LABS: Hematocrit 32.3 % (37.0-47.0); Hemoglobin 10.7 g/dl (12.0-16.0); Mean Corpuscular HGB Conc 33.1 g/dl (31.0-35.0); Mean Corpuscular Hemoglobin 31.1 pg (27.0-33.0); Mean Corpuscular Volume 93.9 fL (80.0-98.0); Mean Platelet Volume 10.7 fL (9.4-12.3); Platelet Count 169 X10*3/uL (160-400); Red Blood Count 3.44 X10*6/uL (4.20-5.50); Red Cell Distribution Width 13.2 % (11.0-16.0); White Blood Count 14.3 X10*3/uL (4.8-10.8)
[2021-10-14 13:55] LABS: Troponin-I High Sensitivity 483.9 ng/L (<3.5-17.0)
--- NOTE | 2021-10-14 14:01 | PC.NURSE ---
md bains notifed of crtical trop via BTC Trip.
[2021-10-14] MEDS: Aspirin Enteric Coated 81 MG TABLET.DR PO (14:11)
[2021-10-14] MEDS: Atorvastatin Calcium 40 MG TABLET PO (14:11)
[2021-10-14 14:18] VITALS: BP 136/54; PULSE 87; RESP 18
--- NOTE | 2021-10-14 17:58 | PC.NURSE ---
report given this nurse from [facility], patient transferred from ED to overflow bed 5, electronic device monitor applied, patient sinus tach 108 on monitor, heparin drip running per order, lt arm in sling, pt has + csm to left arm, pt denies need for pain medication, family at bedside, lab here to draw repeat PPT, call martinez within reach, will continue to monitor.
[2021-10-14 18:25] LABS: PTT Heparin Drip 58.6 SEC (53-77.9)
[2021-10-14 19:45] VITALS: BP 156/67; PULSE 106; RESP 16; TEMP 36.9; O2SAT 93
--- NOTE | 2021-10-14 20:34 | PC.NURSE ---
Addendum entered by Carmenza Baker RN 10/14/21 20:37: there is no change to the heparin drip it is to stay at 12 per PTT Original Note: this nurse attempted to obtain a cosign for heparin drip, charge in the ED was called x2, nursing rubbish collection supervisor was tiger texted and pharmacy was called- pharmacist came to the unit and attempted to cosign and it wouldn't allow him to do so, pharmacist asked that we reach out to our management team to see if that could be changed for them to assist if needed. will continue to attempt to have a nurse come cosign.
--- NOTE | 2021-10-14 20:50 | PC.NURSE ---
charge nurse called this nurse, and was able to send an ed nurse over to finally cosign the heparin, it was back timed.
[2021-10-14 21:08] VITALS: O2SAT 88; O2SAT 98
--- NOTE | 2021-10-14 21:09 | PC.NURSE ---
patient desat to 88% on room air while sleeping, pt was moved from bed 5 because there is no wall O2 and no concentrator anymore, pt was moved to bed 1, placed on 2L NC and she returned to upper 90s. patient stated she does not wear O2 at home while sleeping.
[2021-10-15] VITALS (7 sets, daily range): BP systolic 115–151; BP diastolic 58–70; PULSE 67–106; RESP 12–18; TEMP 36.6–37.4; O2SAT 95–97
[2021-10-15 00:38] LABS: PTT Heparin Drip 51.1 SEC (53-77.9)
[2021-10-15] MEDS: Heparin Sodium,Porcine 5,000 UNIT/ML VIAL 2300 UNIT IVPUSH (01:26)
--- NOTE | 2021-10-15 01:58 | PC.NURSE ---
Took over care of patient around 2300. VSS. Telemetry SR. Patient on Heparin drip infusing at 12units/hr. PTT came back at 51.1. I tiger text the nursing pit and auxiliaries supervisor to come cosign bolus and rate change with no answer. I called charge nurse in ED. I had to hang up and call back for assistance. I received a call that no one in the ED was able to assist. I called nursing pit and auxiliaries supervisor and she sent a nurse down to help. Denzel witnessed and co-signed the bolus and rate change. Patient was bolused with 46units and the drip was increased by 2 units per Heparin protocol. Next PTT ordered for 0730. Pt was sleeping soundly. Arousable to voice and light touch. A&OX3. Speech is clear and appropriate. Denies pain/sob. LS-CTA. No cough or sob noted. Left arm casted and in sling. +CMS. Bed alarm on for safety and call martinez within reach. Will continue to monitor.
[2021-10-15 06:49] LABS: Hematocrit 31.1 % (37.0-47.0); Hemoglobin 10.2 g/dl (12.0-16.0); Mean Corpuscular HGB Conc 32.8 g/dl (31.0-35.0); Mean Corpuscular Hemoglobin 30.5 pg (27.0-33.0); Mean Corpuscular Volume 93.1 fL (80.0-98.0); Mean Platelet Volume 10.9 fL (9.4-12.3); Platelet Count 163 X10*3/uL (160-400); Red Blood Count 3.34 X10*6/uL (4.20-5.50); Red Cell Distribution Width 12.9 % (11.0-16.0); White Blood Count 10.2 X10*3/uL (4.8-10.8)
[2021-10-15 07:14] LABS: Troponin-I High Sensitivity 277.7 ng/L (<3.5-17.0)
[2021-10-15 07:17] LABS: Cholesterol 182 mg/dL; HDL Cholesterol 54 mg/dL; LDL Cholesterol Calculated 114 mg/dl; Triglycerides 74 mg/dL
[2021-10-15 07:33] LABS: INTERNATIONAL NORM RATIO 1.1 (0.9-1.1); Prothrombin Time 12.4 SEC (9.9-13.0)
--- NOTE | 2021-10-15 07:55 | PC.NURSE ---
lab currently drawing blood for PTT Heparin drip. will adjust as needed per protocol.
[2021-10-15] MEDS: Atorvastatin Calcium 40 MG TABLET PO (08:34)
[2021-10-15] MEDS: Aspirin Enteric Coated 81 MG TABLET.DR PO (08:34)
[2021-10-15] MEDS: Metoprolol Succinate ER 50 MG TAB.ER.24H PO (08:35)
--- NOTE | 2021-10-15 08:46 | PC.NURSE ---
pt alert and oriented, denies pain, vss. + CMS, pt resting quietly no apparent. meds given as documented. no complaints.
[2021-10-15 08:55] LABS: PTT Heparin Drip 75.7 SEC (53-77.9)
--- NOTE | 2021-10-15 12:01 | PC.NURSE ---
PTT result 75.7 received at 1000 no change to infusion per protocol. next draw 1400, order in. vss. pt seen by cardiology.
--- NOTE | 2021-10-15 12:11 | HO.PM.IMPN ---
Subjective Subjective Date of Service: 10/15/21 Interval History: patient offers no complaints of nausea, weakness, no chest pain, no shortness of breath, no palpitation, slept well tolerating diet no acute events overnight telemetry showing normal sinus rhythm. Review of Systems General no headache no dizziness no fever chills. CVS no chest pain, no palpitation. Respiratory no cough no sob. Gastrointestinal no nausea no vomiting, no abdominal pain Review of Systems: Yes all other systems are reviewed and are negative Physical Exam Vital Signs: Vital Signs: Last Vital Signs Temp 98.5 F 10/15/21 03:01 Pulse 103 H 10/15/21 08:38 Resp 12 10/15/21 08:38 BP 129/58 L 10/15/21 08:38 Pulse Ox 97 10/15/21 08:38 BMI result Body Mass Index 22.4 Const: Other: General Awake, alert in no acute distress, in no acute distress. Neck no JVD. CVS regular rate rhythm, Respiratory lungs clear to auscultation, no respiratory distress, no wheeze, no rhonchi. Gastrointestinal abdomen soft, nontender, bowel sounds audible Extremities no edema. Neuro nonfocal Skin no rash psych appropriate affect Objective Data Active Medications Acetaminophen (Acetaminophen 325 Mg Tablet) 650 mg PO Q6H PRN PRN Reason: Pain, Mild (Pain Scale 1-3) Aspirin (Aspirin Enteric Coated 81 Mg Tablet.) 81 mg PO DAILY [facility] Last Admin: 10/15/21 08:34 Dose: 81 mg Documented by: VICKY Atorvastatin Calcium (Atorvastatin Calcium 40 Mg Tablet) 40 mg PO DAILY [facility] Last Admin: 10/15/21 08:34 Dose: 40 mg Documented by: VICKY Heparin Sodium (Porcine) (Heparin Sodium,Porcine 5,000 Unit/Ml Vial) 2,300 unit 40 unit/kg (2300 unit) IVPUSH PROTOCOL BOLUS PRN; Protocol PRN Reason: 40 unit/kg - Heparin Protocol Last Admin: 10/15/21 01:26 Dose: 2,300 unit Documented by: MIKAELA Comments: bolus given for a PTT Heparin Sodium (Porcine) (Heparin Sodium,Porcine 5,000 Unit/Ml Vial) 4,600 unit 80 unit/kg (4600 unit) IVPUSH PROTOCOL BOLUS PRN; Protocol PRN Reason: 80 unit/kg - Heparin Protocol Heparin Sodium/Sodium Chloride () 25,000 unit in 250 mls @ 0 mls/hr IVCONT .Q0M [facility]; Protocol Last Titration: 10/15/21 11:45 Dose: 14 units/kg/hr, 8.06 mls/hr Documented by: VICKY Cosigned by: STEFANIE Melatonin (Melatonin 3 Mg Tablet) 3 mg PO BEDTIME PRN PRN Reason: Insomnia Metoprolol Succinate (Metoprolol Succinate Er 50 Mg Tab.Er.24h) 50 mg PO DAILY [facility]; Protocol Last Admin: 10/15/21 08:35 Dose: 50 mg Documented by: VICKY Ondansetron HCl (Ondansetron Hcl 4 Mg/2 Ml Vial) 4 mg IVPUSH Q8H PRN PRN Reason: Nausea and Vomiting Oxycodone HCl (Oxycodone Hcl Immed Release 5 Mg Tablet) 5 mg PO Q6H PRN PRN Reason: Pain, Severe (Pain Scale 7-10) Sodium Chloride (0.9 % Sodium Chloride Flush 3 Ml Syringe) 3 ml IVFLUSH QSHIFT [facility] Last Admin: 10/15/21 08:40 Dose: Not Given Documented by: VICKY Non-Admin Reason: IV Running Labs CBC & Chem 7: 10/15/21 05:51 10/14/21 08:31 Labs: Laboratory Results - last 24 hr 10/14/21 10/14/21 10/14/21 13:29 13:29 18:00 MCV 93.9 MCH 31.1 MCHC 33.1 RDW 13.2 Plt Count 169 MPV 10.7 Absolute Nucleated RBC 0.000 Nucleated RBC % (auto) 0.0 PT INR aPTT Heparin Protocol 58.6 D Troponin I High Sens 483.9 H* Triglycerides Cholesterol LDL Cholesterol, Calc HDL Cholesterol 10/15/21 10/15/21 10/15/21 00:23 05:51 05:51 MCV 93.1 MCH 30.5 MCHC 32.8 RDW 12.9 Plt Count 163 MPV 10.9 Absolute Nucleated RBC 0.000 Nucleated RBC % (auto) 0.0 PT INR aPTT Heparin Protocol 51.1 L Troponin I High Sens Triglycerides 74 Cholesterol 182 LDL Cholesterol, Calc 114 HDL Cholesterol 54 10/15/21 10/15/21 10/15/21 05:51 05:51 07:56 MCV MCH MCHC RDW Plt Count MPV Absolute Nucleated RBC Nucleated RBC % (auto) PT 12.4 INR 1.1 aPTT Heparin Protocol 75.7 D Troponin I High Sens 277.7 H* Triglycerides Cholesterol LDL Cholesterol, Calc HDL Cholesterol Assessment and Plan (1) PAF (paroxysmal atrial fibrillation): Status: Acute (2) Non-ST elevation UT (NSTEMI): Status: Acute (3) Hypertension: Status: Acute Assessment and Plan: 81-year-old female patient with past medical history of hypertension, hyperlipidemia, paroxysmal atrial fibrillation on Eliquis currently on hold due to recent left hand surgery, history of non rheumatic aortic stenosis peripheral neuropathy presented to [facility] due to symptoms of weakness nausea and palpitation that started yesterday morning, present all symptoms of nausea weakness and palpitations have resolved patient workup revealed elevated troponin and leukocytosis patient denies URI symptoms, denies chest pain, no palpitations no shortness of breath no urinary symptoms patient is being admitted to [facility] with a diagnosis of elevated troponin. ? Non ST elevation UT, no chest pain, no palpitation, no shortness of breath troponin trended down, multiple risk factors for CAD, hypertension ,hyperlipidemia, age, question secondary to atrial fibrillation versus Takitsubo ? obtain echocardiogram , LDL 114, total cholesterol 182 ? cont. IV heparin x 48h, continue beta blockers, aspirin and statin ? echo from June 03 showed normal EF 70% impaired relaxation, mild aortic valve stenosis ? cardiology recommend to continue IV heparin as above and follow echocardiogram ?paroxysmal atrial fibrillation currently normal sinus rhythm continue beta blockers hold Eliquis since patient on heparin ?leukocytosis resolved was likely reactive ?hypertension stable blood pressure continue metoprolol ?code status DNR ?DVT prophylaxis on IV heparin ?patient will need?continued inpatient hospitalization due to?non ST-elevation UT on IV heparin drip for 48 hours and further ischemic workup. Quality Stroke Does the patient have a stroke diagnosis?: No VTE Prior VTE?: No VTE Risk Level:: Medical - moderate - high VTE Device Contraindication: Treatment Not Indicated VTE Drug Contraindication: N/A - Med Ordered
--- NOTE | 2021-10-15 13:17 | P.CONCA_ITS ---
History of Present Illness History of Present Illness Date of Service: 10/15/21 Requesting physician: Katie Garcia Consult reason: troponin elevation Chief complaint: Elevated troponin Narrative: I was consulted to see Rosa In cardiology consultation today because of elevated troponin. Patient usually sees Dr. Pulido. Past medical history of paroxysmal atrial fibrillation, hypertension, hyperlipidemia, aortic stenosis which is mild by echocardiogram. Patient recently had a fall and had a left wrist fracture status post open reduction internal fixation as per her. Came To the hospital yesterday brought by her daughter with unclear symptoms to me. Patient does not recall why she is in the hospital. As per the ED note she felt weak and nauseous. However patient does not remember the symptoms. She also says points to her left wrist for pain. She denies any chest pain or shortness of breath. She came to the ED and she had initial EKG which was not significantly ischemic which showed nonspecific ST T wave changes. Troponin was done for unclear reasons. Patient then subsequently repeat troponins because initial troponin is 200 which went up to 400. Third troponin further went up and then the 4 troponin is down trending. Overall findings suggestive of myocardial injury. Could be secondary to NSTEMI, primary or secondary and/or stress-induced cardiomyopathy. Patient is very anxious. Was started on IV he sylvain drip yesterday because of elevated troponins and her Eliquis has been withheld because of the recent surgery. Review of Systems Review of Systems: Yes Unobtainable due to mental status PMFSH Past Medical History Medical History Benign hematuria Cellulitis of right lower limb Hypercholesterolemia Hypertension Macular degeneration Osteoporosis Paroxysmal atrial fibrillation Vitamin D deficiency Family History Family History Father Cancer Mother Cancer Surgical History Surgical History H/O eye surgery H/O hemorrhoidectomy History of tonsillectomy Hx of appendectomy Social History Social History Housing: House Alcohol intake: former Patient Tobacco Use Status: Never used Tobacco e-Cigarette/Vaping Use: Never Used Second Hand Smoke Exposure: No Advance Directives: Yes Advance Directives Information Provided: No Advance Directives on File: No service: No Current occupational status: retired Meds Allergies Allergy/AdvReac Type Severity Reaction Status Date / Time No Known Allergies Allergy Verified 10/10/21 11:21 Active Medications: Current Medications Acetaminophen (Acetaminophen 325 Mg Tablet) 650 mg PO Q6H PRN PRN Reason: Pain, Mild (Pain Scale 1-3) Aspirin (Aspirin Enteric Coated 81 Mg Tablet.Dr) 81 mg PO DAILY [facility] Last Admin: 10/15/21 08:34 Dose: 81 mg Documented by: Atorvastatin Calcium (Atorvastatin Calcium 40 Mg Tablet) 40 mg PO DAILY [facility] Last Admin: 10/15/21 08:34 Dose: 40 mg Documented by: Heparin Sodium (Porcine) (Heparin Sodium,Porcine 5,000 Unit/Ml Vial) 2,300 unit 40 unit/kg (2300 unit) IVPUSH PROTOCOL BOLUS PRN; Protocol PRN Reason: 40 unit/kg - Heparin Protocol Last Admin: 10/15/21 01:26 Dose: 2,300 unit Documented by: Heparin Sodium (Porcine) (Heparin Sodium,Porcine 5,000 Unit/Ml Vial) 4,600 unit 80 unit/kg (4600 unit) IVPUSH PROTOCOL BOLUS PRN; Protocol PRN Reason: 80 unit/kg - Heparin Protocol Heparin Sodium/Sodium Chloride () 25,000 unit in 250 mls @ 0 mls/hr IVCONT .Q0M [facility]; Protocol Last Titration: 10/15/21 11:45 Dose: 14 units/kg/hr, 8.06 mls/hr Documented by: Melatonin (Melatonin 3 Mg Tablet) 3 mg PO BEDTIME PRN PRN Reason: Insomnia Metoprolol Succinate (Metoprolol Succinate Er 50 Mg Tab.Er.24h) 50 mg PO DAILY [facility]; Protocol Last Admin: 10/15/21 08:35 Dose: 50 mg Documented by: Ondansetron HCl (Ondansetron Hcl 4 Mg/2 Ml Vial) 4 mg IVPUSH Q8H PRN PRN Reason: Nausea and Vomiting Oxycodone HCl (Oxycodone Hcl Immed Release 5 Mg Tablet) 5 mg PO Q6H PRN PRN Reason: Pain, Severe (Pain Scale 7-10) Sodium Chloride (0.9 % Sodium Chloride Flush 3 Ml Syringe) 3 ml IVFLUSH QSHIFT [facility] Last Admin: 10/15/21 08:40 Dose: Not Given Documented by: Home Medications Medication Instructions Recorded Confirmed Last Taken Type calcium carbonate 600 mg calcium 600 mg PO DAILY 02/10/20 10/14/21 Unknown History (1,500 mg) tablet (Calcium) vit C,E,zinc,copper-lnqst9d 250 1 cap PO DAILY 02/10/20 10/14/21 Unknown History mg-lutein 5 mg-zeaxanthin 1 mg capsule (Ocuvite Adult 50 Plus) vitamins A,C,S-ypcj-orwwsj 14,320 1 cap PO BID 02/10/20 10/14/21 Unknown History unit-226 mg-200 unit capsule (PreserVision AREDS) pravastatin 20 mg tablet 1 tab PO BEDTIME 10/14/21 10/14/21 Unknown History Physical Exam Vital Signs: Vital Signs: Last Vital Signs Temp 98.5 F 10/15/21 03:01 Pulse 103 H 10/15/21 08:38 Resp 12 10/15/21 08:38 BP 129/58 L 10/15/21 08:38 Pulse Ox 97 10/15/21 08:38 BMI result Body Mass Index 22.4 Const: General: cooperative, comfortable, alert, awake and anxious Nutritional Appearance: underweight Orientation/consciousness: patient oriented x3 HEENT: Head: Yes normocephalic and Yes atraumatic Neck: Neck: Yes trachea midline and Yes no JVD Resp: Effort & Inspection: normal respiratory effort Auscultation: clear to auscultation bilaterally Cardio: Jugular venous distension: no JVD Palpation: normal PMI Rate: regular rate Rhythm: regular rhythm Heart sounds: S1 normal heart sound present, S2 normal heart sound present, no click, no gallops and Murmur heart sound present systolic GI: Auscultation: normal bowel sounds Skin: General skin exam: no rashes or lesions noted Neuro: General: patient oriented x3 and no focal motor deficits Extrem: General: Yes no clubbing, cyanosis or edema Objective Labs and Meds Result diagrams: 10/15/21 05:51 10/14/21 08:31 Lab results: Laboratory Results - last 24 hr 10/14/21 10/14/21 10/14/21 13:29 13:29 18:00 WBC 14.3 H RBC 3.44 L Hgb 10.7 L Hct 32.3 L MCV 93.9 MCH 31.1 MCHC 33.1 RDW 13.2 Plt Count 169 MPV 10.7 Absolute Nucleated RBC 0.000 Nucleated RBC % (auto) 0.0 PT INR aPTT Heparin Protocol 58.6 D Troponin I High Sens 483.9 H* Triglycerides Cholesterol LDL Cholesterol, Calc HDL Cholesterol 10/15/21 10/15/21 10/15/21 00:23 05:51 05:51 WBC 10.2 RBC 3.34 L Hgb 10.2 L Hct 31.1 L MCV 93.1 MCH 30.5 MCHC 32.8 RDW 12.9 Plt Count 163 MPV 10.9 Absolute Nucleated RBC 0.000 Nucleated RBC % (auto) 0.0 PT INR aPTT Heparin Protocol 51.1 L Troponin I High Sens Triglycerides 74 Cholesterol 182 LDL Cholesterol, Calc 114 HDL Cholesterol 54 10/15/21 10/15/21 10/15/21 05:51 05:51 07:56 WBC RBC Hgb Hct MCV MCH MCHC RDW Plt Count MPV Absolute Nucleated RBC Nucleated RBC % (auto) PT 12.4 INR 1.1 aPTT Heparin Protocol 75.7 D Troponin I High Sens 277.7 H* Triglycerides Cholesterol LDL Cholesterol, Calc HDL Cholesterol Imaging Radiologist's impression: Impressions Chest X-Ray 10/14/21 13:14 IMPRESSION: Left lower lobe disease with probable small effusion. Assessment and Plan (1) Elevated troponin: Status: Acute Elevated troponin with clear rise and fall consistent with myocardial injury. She had recent orthopedic surgery. Likely could represent primary event, but also highly likely that this could be stress-induced cardiomyopathy. Will continue IV heparin till tomorrow. Obtain an echocardiogram to assess LV systolic function especially to evaluate for typical regional wall motion abnormality. If she does, will pursue medical therapy. If her echocardiogram is negative may need to pursue ischemic workup to evaluate for obstructive coronary artery disease if patient wants to proceed with that management plan. For now discussed with her to be less anxious and participate in stress mitigation. Start metoprolol. Continue aspirin high-intensity statin therapy. Blood pressure is well optimized (2) PAF (paroxysmal atrial fibrillation): Status: Acute Paroxysmal atrial fibrillation without any recurrence. Start metoprolol therapy to improve heart rate control. No need for antiarrhythmic drug therapy. If echocardiogram shows no significant abnormality, can eventually if no signif icant ischemia switch to oral Eliquis therapy. Will follow with her. Procedures Date of Service Date of Service: 10/15/21
[2021-10-15 14:13] LABS: PTT Heparin Drip 81.6 SEC (53-77.9)
[2021-10-15] MEDS: Heparin Sodium,Porcine/1/2NS 25,000 UNIT/250 ML IV.SOLN 6.91 UNIT IVCONT (17:27)
[2021-10-15] MEDS: 0.9 % Sodium Chloride Flush 3 ML SYRINGE IVFLUSH (20:35)
[2021-10-16] MEDS: Heparin Sodium,Porcine 5,000 UNIT/ML VIAL 2300 UNIT IVPUSH (01:44)
[2021-10-16 03:47] VITALS: BP 139/66; PULSE 79; RESP 15; TEMP 36.9; O2SAT 96
--- NOTE | 2021-10-16 07:00 | CA_ITS ---
Transthoracic Echocardiogram Patient (Last, First, Middle): Rosa George, Gender: Female Date of : 1940 Age: 81 Procedure Date: 10/16/2021 Procedure Type: Transthoracic Echocardiogram Location: [facility] Height: 160.02 cm Weight: 57.15 kg BSA: 1.59 m2 Heart Rate: bpm BP: 139 / 66 mmHg Earring Maker: [place] Referring MD: Katie Garcia MD Symptoms: nstemi Study Quality: Fair ECG Rhythm: Sinus Conclusions: - The left ventricular systolic function is hyperdynamic. The visually estimated ejection fraction is >70%. - There is mild aortic valve stenosis. - Mean gradient across the mitral valve 7 mm Hg at 73/Min. Could indicate moderate mitral stenosis. - Mild pulmonary hypertension is present. Findings Left Ventricle Normal left ventricular cavity size. The left ventricular systolic function is hyperdynamic. The visually estimated ejection fraction is >70%. There is no evidence of regional wall motion abnormalities. There is no dynamic left ventricular outflow tract obstruction. E/E prime ratio is >15, consistent with elevated filling pressures. Evidence suggests grade I (mild) diastolic dysfunction. Right Ventricle Normal right ventricular cavity size and systolic function. Atria The left atrium is likely dilated. The right atrium is normal in size. Aortic Valve There is mild calcification of the aortic valve. There is mild aortic valve stenosis. The mean gradient is 20 mmHg. The aortic valve area is 1.88 cm2. There is trace (trivial) aortic valve regurgitation. Mitral Valve There is moderate mitral annular calcification. There is mild mitral valve regurgitation. Mean gradient across the mitral valve 7 mm Hg at 73/Min. Could indicate moderate mitral stenosis. Pulmonic Valve The pulmonic valve was not well visualized. Tricuspid Valve There is mild tricuspid valve regurgitation. The right ventricular systolic pressure is 40 mmHg. Mild pulmonary hypertension is present. Great Vessels The aortic annulus, sinuses of valsalva, and sino tubular ridge are normal in size. Venous The inferior vena cava is normal in size and collapses greater than 50% with inspiration. Pericardium/Pleural There is no evidence of pericardial effusion. Prior Study Comparison No significant change compared to prior study dated: 05/16/2021. Due to technical issues, could not read earlier. Measurements 2D Linear Measurements IVSd: 0.90 0.6-0.9/0.6-1.0 cm LVIDd: 4.43 3.9-5.3/4.2-5.9 cm LVIDd Index: 2.79 2.4-3.2/2.2-3.1 cm/m2 LVIDs: 2.89 2.0-3.6 cm LVPWd: 1.13 0.7-1.1 cm LA Diam: 3.50 2.7-3.8/3.0-4.0 cm LAIDs Index: 2.20 1.5-2.3 cm/m2 LV Mass: 189.95 67-162/88-224 g LV Mass Index: 119.47 43-95/49-115 g/m2 LVOT Diam: 1.70 3.0+(-)1.3 cm Mitral Valve MV VTI: 0.59 MV Pk Anibal: 1.84 MV Mn Anibal: 1.22 MV Pk Grad: 14.00 MV Mn Grad: 7.00 MV Pk E: 1.59 MV PK A: 1.72 MV Decel Time: 349.00 E/A: 0.90 E'Lateral: 4.79 E'Medial: 3.26 E/E' Med: 48.80 E/E' Lat: 33.20 PHT: 102.00 MVA PHT: 2.16 MVA Continuity: 1.83 Decel [place]: 4.54 Aortic Valve AoV Pk Anibal: 2.91 AoV Mn Anibal: 2.11 AoV VTI: 0.57 AoV Pk Grad: 34.00 Aov Mn Grad: 20.00 ANGELICA Cont.VTI: 1.88 LVOT LVOT Pk Anibal: 2.24 LVOT Mn Anibal: 1.84 LVOT VTI: 0.47 LVOT Pk Grad: 20.00 LVOT Mn Grad: 15.00 LVOT Diam: 1.70 LVOT Area: 2.27 Diastolic Function MV Pk E: 1.59 MV Pk A: 1.72 E/A: 0.90 E'Medial: 3.26 E/E' Med: 48.80 E' Laterial: 4.79 E/E' Lat: 33.20 Right Ventricle TAPSE (mm): 20.80 TVS' Anibal: 14.40 Tricuspid Valve TR Pk Anibal: 3.05 TR Pk Grad: 37.00 RA Press: 3.00 RVSP: 40.00 Great Vessels Aorta Sinus of Valsalva: 2.84 2.0-3.[address] [place]: 2.54 1.7-3.4 cm Updated in Other Vendor System with Status of Final Mahesh Pulido MD electronically signed on 10/18/2021 11:52:22 AM with status of Final
[2021-10-16 07:20] VITALS: BP 138/68; PULSE 77; RESP 16; TEMP 36.4; O2SAT 97
[2021-10-16 08:22] LABS: PTT Heparin Drip 77.3 SEC (53-77.9)
--- NOTE | 2021-10-16 09:42 | PM.PNCARD ---
Subjective Subjective Date of Service: 10/16/21 Interval history: She states that she feels okay. No specific complaints like angina at this time. She did not have any chest pain in the last few days. Also discussed with daughter who states that she was just feeling weak but did not have any anginal-type symptoms. Review of Systems Review of Systems Yes all other systems are reviewed and are negative Constitutional: Reports as per HPI, Reports lethargy and Reports malaise Eyes: Reports as per HPI Reports as per HPI Cardiovascular: Reports as per HPI, Denies acrocyanosis, Denies cool extremities, Denies chest pain, Denies leg edema, Denies lightheadedness, Denies palpitations and Denies dyspnea Respiratory: Reports as per HPI, Reports no additional respiratory complaints and Denies dyspnea Gastrointestinal: Reports as per HPI and Reports no additional gastrointestinal complaints Genitourinary: Reports as per HPI Musculoskeletal: Reports no additional musculoskeletal complaints and Reports as per HPI Skin/Breast: Reports system reviewed and no additional complaints, except as docu Reports system reviewed and no additional complaints, except as documented and Reports as per HPI Psychiatric: Reports no additional psychiatric complaints and Reports as per HPI Endocrine: Reports no additional endocrine complaints, Reports as per HPI and Denies palpitations Hematologic/Lymphatic: Reports no additional hematologic/lymphatic complaints and Reports as per HPI Allergic/Immunologic: Reports no additional allergic/immunologic complaints and Reports as per HPI Physical Exam Vital Signs: Last Vital Signs Temp 97.6 F 10/16/21 07:20 Pulse 77 10/16/21 07:20 Resp 16 10/16/21 07:20 BP 138/68 10/16/21 07:20 Pulse Ox 97 10/16/21 07:20 BMI result Body Mass Index 22.4 Const General: comfortable, no acute distress and tired appearing Orientation/consciousness: patient oriented x3 HEENT Other: Unremarkable Head: Yes normal to inspection Neck Neck: Yes normal visual inspection Chest Chest palpation & inspection: normal inspection of the chest Resp Auscultation: clear to auscultation bilaterally Cardio Palpation: normal PMI Heart sounds: S1 normal heart sound present, S2 normal heart sound present, no gallops, Murmur heart sound present systolic early, II/ and at the right sternal border and no rubs GI Palpation (GI): Soft to palpation Back/Spine/Pelvis Other: unremarkable Skin General skin exam: no rashes or lesions noted Neuro General: patient oriented x3 Extrem General: Yes normal to inspection Psych Mental Status: mental status grossly normal Objective Labs and Meds Result diagrams: 10/15/21 05:51 10/14/21 08:31 Lab results: Laboratory Results - last 24 hr 10/15/21 10/15/21 10/15/21 07:56 13:55 18:17 aPTT Heparin Protocol 75.7 D 81.6 H 63.0 D 10/16/21 10/16/21 00:57 08:00 aPTT Heparin Protocol 45.0 L D 77.3 D Progress Note: A&P Assessment and plan (1) Non-ST elevation AR (NSTEMI): Status: Acute Plan EKG shows sinus rhythm and nonspecific changes. Hemoglobin is 10.2. Creatinine 0.83. High sensitivity troponins are 290 followed by 403 followed by 483. Last set 277. She clearly has had a rise and fall. Last echocardiogram from May of this year shows hyperdynamic LVEF; mild aortic stenosis/regurgitation; moderate mitral annular calcification and possible mild stenosis. We will repeat an echocardiogram to reassess wall motion but due to technical issues unable to process at this time. However on limited images at bedside no obvious wall motion abnormality. Discussed with daughter in patient's room. Overall, it seems that patient a recent fall from generalized weakness and had a left wrist fracture that required surgery and now readmitted with weakness and nausea. The above could be a demand related NSTEMI from stress as above. She is generally on Eliquis for atrial fibrillation but currently IV heparin. We can continue that. Continue aspirin, beta-blockers and statins. Recommended diagnostic cardiac catheterization. Daughter is agreeable. Will transfer to [facility]. Time Spent With Patient Time: Total time spent is greater than 50% in coordination of care (as documented) at patient's floor/unit and/or counseling patient: 40min Progress Note: Quality Stroke Does the patient have a stroke diagnosis?: No Procedures Date of Service Date of Service: 10/16/21
[2021-10-16] MEDS: 0.9 % Sodium Chloride Flush 3 ML SYRINGE IVFLUSH (09:56)
[2021-10-16] MEDS: Atorvastatin Calcium 40 MG TABLET PO (09:56)
[2021-10-16] MEDS: Metoprolol Succinate ER 50 MG TAB.ER.24H PO (09:56)
[2021-10-16] MEDS: Aspirin Enteric Coated 81 MG TABLET.DR PO (09:56)
--- NOTE | 2021-10-16 11:03 | MHC.CM.PN ---
per rounds pt to be transferred to [facility] today for cardiac cath..had met with tim who is staying with her pt mis vax x 2
[2021-10-16 11:23] VITALS: BP 131/61; PULSE 80; RESP 18; TEMP 36.6; O2SAT 97
--- NOTE | 2021-10-16 11:38 | P.DS_ITS ---
DS: Providers Provider Date of Service: 10/16/21 Date of admission: 10/14/21 13:00 Primary care physician: Clover Carias MD Consults: 10/15/21 08:14 Consult to Cardiology Routine Consulting Provider: Prasad Wilson Reason for consultation: elevated troponin Has provider been notified: No DS: Diagnosis Discharge Diagnosis (1) Non-ST elevation IN (NSTEMI): Status: Acute DS: Summary Hospital Course Hospital Course: Chief Complaint:? weakness and nausea 81-year-old female patient with past medical history of? hypertension, hypercholesterolemia, atrial fibrillation on Eliquis, history of peripheral neuropathy, osteoporosis and nonrheumatic aortic stenosis recently tripped over a step and fell down without head injury or loss of consciousness and diagnosed to have distal? radial and ulnar fracture status post open? reduction and internal fixation on? 10/12/21, patient came in today accompanied by her daughter due to weakness and nausea that started yesterday associated with palpitation, she denied any chest pain, no shortness of breath, in the ER patient admitted that her nausea and weakness has improved and has no palpitation, workup in the emergency room showed? elevated WBC count 12,900, is stable hematocrit, stable electrolytes renal function, liver enzymes however she was noted to have an elevated troponin? of 290, EKG showed no acute ischemic changes patient in normal sinus rhythm repeat troponin bumped up to 403, ER physician spoke with Dr. Pelaez he recommended to admit patient? and to place her on heparin since her Eliquis is on hold due to recent surgery and was due to be started this morning, at baseline patient ambulates without assistive devices fairly active has no history chest pain with activity, is compliant with her home medications including metoprolol and Coreg. hospital course 81-year-old female patient with past medical history of hypertension, hyperlipidemia, paroxysmal atrial fibrillation on Eliquis currently on hold due to recent left hand surgery, history of non rheumatic aortic stenosis peripheral neuropathy presented to [facility] due to symptoms of weakness nausea and palpitation of 1 day duration, her workup in the ER showed elevated troponin and leukocytosis with no associated symptoms of chest pain, no palpitations, no shortness of breath, no urinary symptoms, no URI symptoms, patient admitted to [facility] with following diagnosis. ? Non ST elevation [place], multiple risk factors for cardiac ischemia,hypertension hyperlipidemia, age, vs secondary to atrial fibrillation with symptoms of palpitation versus Takitsubo with recent hand surgery ? patient admitted to telemetry unit and treated with IV heparin, beta-blockers, aspirin and Lipitor, patient remained chest pain-free, tele monitor showed no arrhythmia there were no signs of congestive heart failure, troponin trended down from 483 peaked to 277, LDL is 114 with a total cholesterol of 182 patient evaluated by living specialist, bedside limited echo did not show wall motion abnormalities cardiologists recommend cardiac catheterization, therefore patient being transferred to [facility], On IV heparin. ? echo from June 03 showed normal EF 70% impaired relaxation, mild aortic valve stenosis ? ?paroxysmal atrial fibrillation currently normal sinus rhythm continue beta blockers, Eliquis held since patient on heparin ?leukocytosis resolved was likely reactive ?hypertension stable blood pressure continue metoprolol, home dose of hydrochlorothiazide is on hold status post open reduction and internal fixation of distal radial and ulnar fracture on October 12 continue pain medication Time Spent with Patient Time attestation: Total time spent providing and/or coordinating discharge services: Discharge coordination time: Greater than 30 minutes Quality: Safe Use of Opioids Does Pt have an Active Cancer Diagnosis on the Problem List?: No Quality: Stroke Does the patient have a stroke diagnosis?: No Physical Exam Vital Signs: Vital Signs: Last Vital Signs Temp 97.9 F 10/16/21 11:23 Pulse 80 10/16/21 11:23 Resp 18 10/16/21 11:23 BP 131/61 10/16/21 11:23 Pulse Ox 97 10/16/21 11:23 BMI result Body Mass Index 22.4 Const: Other: General ? Awake, alert in no acute distress, in no acute distress.? Neck? no JVD. CVS? regular rate rhythm, Respiratory lungs clear to auscultation, no respiratory distress, no wheeze, no rhonchi. Gastrointestinal abdomen soft, nontender, bowel sounds audible Extremities no edema. Neuro nonfocal Skin no rash psych appropriate affect DS: Data Data Completed and Pending Labs on day of discharge: Laboratory Results - last 24 hr 10/15/21 10/15/21 10/16/21 13:55 18:17 00:57 aPTT Heparin Protocol 81.6 H 63.0 D 45.0 L D 10/16/21 08:00 aPTT Heparin Protocol 77.3 D Discharge Plan Discharge Patient Disposition: Xfer Acute Care Hospital Discharge Diagnosis: non ST-elevation IN Referrals: [facility] [Other] - 1 Week Po,Clover Brandon MD [Primary Care Provider] - 1 Week Discharge Medications: New heparin(porcine) in 0.45% NaCl 25,000 unit/250 mL Parenteral Solution 25,000 unit continuous IV infusion .Q0M Qty: 250 0RF atorvastatin [Lipitor] 80 mg tablet 80 mg PO DAILY Qty: 30 0RF aspirin 81 mg Tablet,Delayed Release (Dr/Ec) 81 mg PO DAILY Qty: 30 0RF Continued acetaminophen [Tylenol Extra Strength] 500 mg tablet 1,000 mg PO QID PRN (Reason: fever or pain) Qty: 14 0RF hydrocodone-acetaminophen 5-325 mg tablet 1 - 2 tab PO Q6H PRN (Reason: pain) Qty: 30 0RF Ocuvite Adult 50 Plus 250-5-1 mg capsule 1 cap PO DAILY 0RF calcium carbonate [Calcium 600] 600 mg calcium (1,500 mg) tablet 600 mg PO DAILY 0RF PreserVision AREDS [id number] capsule 1 cap PO BID 0RF metoprolol succinate [Toprol XL] 50 mg tablet extended release 24 hr 50 mg PO DAILY Qty: 90 4RF Discontinued pravastatin 20 mg tablet 1 tab PO BEDTIME 0RF hydrochlorothiazide 12.5 mg tablet 12.5 mg PO DAILY Qty: 90 2RF Eliquis 5 mg tablet 5 mg PO BID Qty: 180 4RF Discharge Orders: Discharge Order (Routine); Ordered 10/16/21 Ordered By: Katie Garcia Diet: low fat, low cholesterol Activity on Discharge: bed rest Stand Alone Forms: Patient Portal Discharge page Care Plan Goals: non ST-elevation IN being transferred to [facility] for cardiac catheterization. Health Concerns: hypercholesterolemia/ recent left hand surgery/ paroxysmal atrial fibrillation Plan of Treatment: outpatient follow-up with Cardiology and primary care physician after discharge from acute hospital. Assessment: As per discharge summary
== END 2021-10-16 13:19 | disposition short-term general hospital (02) | DRG 282 ==
LOC: HO.ED 11:13 → HO.EDOVER 13:24 → HO.IMC 10-15 15:10
PROVIDERS: Internal Medicine; Admitting Provider Hospitalist; Emergency Provider Student in an Organized Health Care Education/Training Program; PCP Internal Medicine; Visit Provider Hospitalist
DX: I21.4 Non-ST elevation (NSTEMI) myocardial infarction (principal); Z66 Do not resuscitate; I10 Essential (primary) hypertension; I48.0 Paroxysmal atrial fibrillation; D72.829 Elevated white blood cell count, unspecified; M81.0 Age-related osteoporosis without current pathological fracture; Z20.822 Contact with and (suspected) exposure to COVID-19; Z79.82 Long term (current) use of aspirin; Z79.899 Other long term (current) drug therapy
CPT/HCPCS: 36415; 71045; 80053; 80061; 81001; 84484; 85025; 85027; 85610; 85730; 87635; 93005; 93306; 96365; 96375; 99285; C1713; C1769; J0690; J1100; J2370; J2405; J2795

== ENCOUNTER 2021-10-25 08:21 | Outpatient (REF) | payer MEDICARE, OTHER, SELFPAY ==
--- NOTE | ~2021-10-25 | XR_ITS ---
EXAMINATION: XR WRIST, LEFT CLINICAL INFORMATION: Left wrist pain. COMPARISON: 10/10/2021 and 10/12/2021 TECHNIQUE: PA, lateral, and oblique views of the left wrist. FINDINGS: Decreased bone mineralization. Status post internal fixation of the distal radius. Hardware is intact. Near anatomic alignment. There is a displaced ulnar styloid fracture. There is significant degenerative change of the 1st carpometacarpal joint with sclerosis and spurring and subchondral cyst formation. XR/XR wrist LT min 3V IMPRESSION: Postsurgical changes of the distal radius without radiographic evidence of hardware complication.
== END 2021-10-25 08:22 | disposition home or self-care (01) ==
LOC: HO.HOSX 08:21
PROVIDERS: Visit Provider Orthopaedic Surgery
DX: M25.532 Pain in left wrist (principal)
CPT/HCPCS: 73110

== ENCOUNTER 2021-11-03 07:47 | Outpatient (REF) | payer MEDICARE, OTHER, SELFPAY ==
[2021-11-03 08:24] LABS: MANUAL DIFF FLAG NO
[2021-11-03 08:37] LABS: Basophils Percent Auto 0.4 % (0-2); Eosinophils Absolute Auto 0.3 X10*3/uL (0.0-0.4); Eosinophils Percent Auto 2.8 % (0-4); Hematocrit 36.1 % (37.0-47.0); Hemoglobin 11.3 g/dl (12.0-16.0); Imm Gran Abs Auto 0.03 X10*3/uL (0.00-0.03); Imm Gran Pct Auto 0.3 % (0.0-0.4); Immature Retic Fraction 7.8 % (3.0-15.9); Lymphocytes Percent Auto 22.4 % (20-40); Mean Corpuscular HGB Conc 31.3 g/dl (31.0-35.0); Mean Corpuscular Hemoglobin 29.8 pg (27.0-33.0); Mean Corpuscular Volume 95.3 fL (80.0-98.0); Mean Platelet Volume 10.6 fL (9.4-12.3); Monocytes Absolute Auto 0.8 X10*3/uL (0.1-1.2); Monocytes Percent Auto 8.6 % (2-11); Neutrophils Absolute Auto 5.9 x10*3/uL (2.0-8.3); Neutrophils Percent Auto 65.5 % (45-73); Platelet Count 189 X10*3/uL (160-400); Red Blood Count 3.79 X10*6/uL (4.20-5.50); Retic HGB Equivalent 34.9 pg (30.0-35.0); Reticulocyte Percent 1.4 % (0.5-1.8); Reticulocytes Absolute 0.054 X10*6/uL (0.026-0.095)
[2021-11-03 09:06] LABS: Alanine Aminotransferase 20 U/L (0-31); Alkaline Phosphatase 96 U/L (39-117); Anion Gap 12 (12-20); Aspartate Amino Transferase 17 U/L (5-31); Bilirubin Total 0.6 mg/dL (0.0-1.0); Blood Urea Nitrogen 23 mg/dL (9-16); Calcium 9.2 mg/dL (8.4-10.2); Carbon Dioxide 28 mmol/L (22-29); Chloride 106 mmol/L (96-108); Cholesterol 164 mg/dL; Estimated Glomerular Filt Rate > 60; Glucose Random 99 mg/dL (60-115); HDL Cholesterol 61 mg/dL; Iron 88 mcg/dL (30-160); LDL Cholesterol Calculated 94 mg/dl; Percent Iron Saturation 28 % (15-50); Potassium 4.7 mmol/L (3.3-5.1); Sodium 141 mmol/L (135-145); Total Iron Binding Capacity 317 mcg/dL (228-428); Total Protein 6.4 g/dL (6.5-8.0); Triglycerides 45 mg/dL; Unsaturated Iron Binding 229 ug/dL
[2021-11-03 09:29] LABS: Ferritin 105 ng/mL (10-250); Free T4 (Free Thyroxine) 1.14 ng/dL (0.71-1.85); Thyroid Stimulating Hormone 0.79 uIU/mL (0.32-4.0)
[2021-11-03 09:32] LABS: Folate 11.6 ng/mL (> or = 4.0); Vitamin B12 559 pg/mL (200-900)
== END 2021-11-03 07:48 | disposition home or self-care (01) ==
LOC: HO.LAB 07:47
PROVIDERS: PCP Internal Medicine; Visit Provider Internal Medicine
DX: E78.00 Pure hypercholesterolemia, unspecified (principal); I21.4 Non-ST elevation (NSTEMI) myocardial infarction; D64.9 Anemia, unspecified
CPT/HCPCS: 36415; 80053; 80061; 82607; 82728; 82746; 83540; 84439; 84443; 85025; 85045

== ENCOUNTER 2021-11-15 08:14 | Outpatient (REF) | payer MEDICARE, OTHER, SELFPAY ==
--- NOTE | ~2021-11-15 | XR_ITS ---
EXAMINATION: XR WRIST, LEFT CLINICAL INFORMATION: Pain. COMPARISON: Left wrist 10/25/2021. TECHNIQUE: PA, lateral, and oblique views of the left wrist. FINDINGS: There is a volar plate and screws for a slow healing fracture. There is loss of 1st carpometacarpal, PIP and DIP joint space with subchondral cystic changes at the 1st MCP joint. No visible acute fracture, dislocation or subluxation seen. There is loss of carpal, metacarpal joint space as well. There is old ulnar styloid process fracture. XR/XR wrist LT min 3V IMPRESSION: Slowly healing distal radial fracture with volar plate and screws. There is nonhealed ulnar styloid process fracture fragment. Mild degenerative changes 1st carpometacarpal joint. Also visualized are mild degenerative changes involving the PIP and DIP joints.
== END 2021-11-15 08:15 | disposition home or self-care (01) ==
LOC: HO.HOSX 08:14
PROVIDERS: Visit Provider Orthopaedic Surgery
DX: M25.532 Pain in left wrist (principal)
CPT/HCPCS: 73110

== ENCOUNTER 2021-12-06 08:51 | Outpatient (REF) | payer MEDICARE, OTHER, SELFPAY | END 2021-12-06 08:52 | disposition home or self-care (01) | LOC: HO.HOSX 08:51 | PROVIDERS: Visit Provider Orthopaedic Surgery | DX: Z13.89 Encounter for screening for other disorder (principal) ==

== ENCOUNTER 2022-01-17 09:00 | Outpatient (RCR) | payer MEDICARE, OTHER, SELFPAY ==
--- NOTE | 2022-02-01 09:31 | MHC.OT.DC ---
[address] [phone] F: [phone] Occupational Therapy Discharge Note Provider: Malathi Cohen Diagnosis: Left DR SEARS Date of Surgery: 10/12/21 Date of Evaluation: 11/29/21 Date of Discharge: 02/01/22 Treatments to Date: 9 Cancellations to Date: No Shows to Date: Discharge Status: Achieved Goals Improved Function Independent with HEP Discharge Summary: Goals met for ROM, strength and function. Strength low Pt reports no difficulty with daily activities. Underlying OA contributing to jt stiffiness with index and long fingers Difficulty with HEP due to memory impairment. Electronically Signed By: Clover Joshi OT tCLT Reviewed/agree with student documentation: N/A Therapist: Please Sign and return to therapist, thank you for your referral.
== END 2022-02-01 09:32 | disposition home or self-care (01) ==
LOC: HO.OT 09:00
PROVIDERS: Visit Provider Orthopaedic Surgery
DX: M25.642 Stiffness of left hand, not elsewhere classified (principal); S52.502A Unspecified fracture of the lower end of left radius, initial encounter for closed fracture
CPT/HCPCS: 97110; 97167; 97530

== ENCOUNTER → 2022-01-18 10:04 | Outpatient (BNVA) | payer MEDICARE, OTHER, SELFPAY | PROVIDERS: PCP Internal Medicine; Visit Provider Internal Medicine | DX: I48.0 Paroxysmal atrial fibrillation (principal); I35.0 Nonrheumatic aortic (valve) stenosis; I05.9 Rheumatic mitral valve disease, unspecified; I21.4 Non-ST elevation (NSTEMI) myocardial infarction; I10 Essential (primary) hypertension; E78.5 Hyperlipidemia, unspecified | CPT/HCPCS: 99212 ==

== ENCOUNTER 2022-04-09 09:42 | Outpatient (REF) | payer MEDICARE, OTHER, SELFPAY ==
[2022-04-09 09:56] LABS: MANUAL DIFF FLAG NO
[2022-04-09 10:59] LABS: Basophils Percent Auto 0.5 % (0-2); Eosinophils Absolute Auto 0.2 X10*3/uL (0.0-0.4); Eosinophils Percent Auto 2.3 % (0-4); Hematocrit 35.5 % (37.0-47.0); Hemoglobin 11.5 g/dl (12.0-16.0); Imm Gran Abs Auto 0.04 X10*3/uL (0.00-0.03); Imm Gran Pct Auto 0.5 % (0.0-0.4); Immature Retic Fraction 8.5 % (3.0-15.9); Lymphocytes Absolute Auto 1.8 X10*3/uL (1.2-4.9); Lymphocytes Percent Auto 21.2 % (20-40); Mean Corpuscular HGB Conc 32.4 g/dl (31.0-35.0); Mean Corpuscular Hemoglobin 30.3 pg (27.0-33.0); Mean Corpuscular Volume 93.4 fL (80.0-98.0); Monocytes Absolute Auto 0.7 X10*3/uL (0.1-1.2); Monocytes Percent Auto 8.2 % (2-11); Neutrophils Absolute Auto 5.8 x10*3/uL (2.0-8.3); Neutrophils Percent Auto 67.3 % (45-73); Platelet Count 192 X10*3/uL (160-400); Red Cell Distribution Width 13.3 % (11.0-16.0); Retic HGB Equivalent 35.6 pg (30.0-35.0); Reticulocyte Percent 1.9 % (0.5-1.8); Reticulocytes Absolute 0.073 X10*6/uL (0.026-0.095); White Blood Count 8.6 X10*3/uL (4.8-10.8)
[2022-04-09 11:57] LABS: Alanine Aminotransferase 23 U/L (0-31); Albumin Level 4.2 g/dL (3.5-5.0); Alkaline Phosphatase 92 U/L (39-117); Anion Gap 15 (12-20); Aspartate Amino Transferase 20 U/L (5-31); Bilirubin Total 0.7 mg/dL (0.0-1.0); Blood Urea Nitrogen 24 mg/dL (9-16); Calcium 9.5 mg/dL (8.4-10.2); Carbon Dioxide 24 mmol/L (22-29); Chloride 105 mmol/L (96-108); Cholesterol 170 mg/dL; Estimated Glomerular Filt Rate > 60; Glucose Random 89 mg/dL (60-115); HDL Cholesterol 62 mg/dL; Iron 96 mcg/dL (30-160); LDL Cholesterol Calculated 97 mg/dl; Percent Iron Saturation 27 % (15-50); Potassium 4.4 mmol/L (3.3-5.1); Sodium 140 mmol/L (135-145); Total Iron Binding Capacity 352 mcg/dL (228-428); Total Protein 6.8 g/dL (6.5-8.0); Triglycerides 56 mg/dL; Unsaturated Iron Binding 256 ug/dL
[2022-04-09 12:09] LABS: Ferritin 54 ng/mL (10-250)
== END 2022-04-09 09:43 | disposition home or self-care (01) ==
LOC: HO.LAB 09:42
PROVIDERS: PCP Internal Medicine; Visit Provider Internal Medicine
DX: E78.00 Pure hypercholesterolemia, unspecified (principal); D64.9 Anemia, unspecified
CPT/HCPCS: 36415; 80053; 80061; 82607; 82728; 82746; 83540; 85025; 85045

== ENCOUNTER 2022-08-13 20:42 | Emergency (ER) | payer MEDICARE, OTHER, SELFPAY ==
--- NOTE | ~2022-08-13 | XR_ITS ---
EXAMINATION: XR CHEST CLINICAL INFORMATION: Weakness involving COMPARISON: 10/14/2021 TECHNIQUE: Frontal view of the chest was obtained. FINDINGS: Heart size upper limits of normal. No evidence of CHF no infiltrates, effusions or lung masses are seen. Previously noted left lower lobe infiltrate and small left pleural effusion has cleared. Incidental note made of bilateral rotator cuff disease with calcification in the supraspinatus tendons. XR/XR chest 1V IMPRESSION: No acute intrathoracic disease.
--- NOTE | ~2022-08-13 | CT_ITS ---
EXAMINATION: CT CHEST WITHOUT CONTRAST CLINICAL INFORMATION: Shortness of breath COMPARISON: None available. TECHNIQUE: Multidetector volumetric CT imaging of the chest was done. Axial MIP volume rendering provided. Sagittal and coronal reformatted images were obtained. This CT examination was performed using dose optimization techniques as appropriate, variously including the following: *Automated exposure control *Adjustment of mA and/or kV according to patient size (this includes techniques or standardized protocols for targeted exams where dose is matched to indication/reason for exam; i.e. extremities or head) *Use of iterative reconstruction technique DLP: 1422 mGy-cm FINDINGS: LUNGS: The lungs are clear with no evidence of inflammation or nodules. Mild dependent atelectatic changes. Biapical pleural-parenchymal scarring. MEDIASTINUM: Mild cardiac. No pericardial effusion. Great vessels normal caliber. Mitral annular calcifications. No mediastinal, hilar or supraclavicular lymphadenopathy. CORONARY ARTERY CALCIFICATION: Present. PLEURA: There is no pleural effusion. No pleural mass or thickening. AXILLA: No lymphadenopathy. UPPER ABDOMEN: Unremarkable. OSSEOUS STRUCTURES: No acute or suspicious osseous abnormalities. CT/CT chest wo IV con IMPRESSION: * No acute pulmonary parenchymal abnormalities. * Mild cardiomegaly. * Coronary calcifications.
--- NOTE | ~2022-08-13 | CT_ITS ---
EXAMINATION: CT head/brain wo IV con CLINICAL INFORMATION: Confusion COMPARISON: None. TECHNIQUE: Contiguous axial imaging was performed from the skull base to vertex without intravenous contrast. Sagittal and coronal reformatted images were obtained. This CT examination was performed using dose optimization techniques as appropriate, variously including the following: * Automated exposure control * Adjustment of mA and/or kV according to patient size (this includes techniques or standardized protocols for targeted exams where dose is matched to indication/reason for exam; i.e. extremities or head) Use of iterative reconstruction technique DLP: 1422 mGy-cm FINDINGS: There is an acute hyperdense intraparenchymal hematoma within the anterior left frontal lobe cortical and subcortical white matter measuring approximately 7.3 x 4.4 x 3.2 cm (AP x TR x CC) with surrounding vasogenic edema. Regional mass effect with effacement of the left frontal convexity sulci, partial effacement of the left frontal horn with dissection of hemorrhage into the left frontal horn and layering small volume hyperdense blood products in the bilateral occipital horns. 4 mm rightward midline shift. No evidence of hydrocephalus. Background of chronic microangiopathy. Prominent extra-axial CSF space versus hypodense subdural collections along the undersurface of the tentorial leaflets with mild mass effect along the superior right cerebellum. Trace subarachnoid blood products within the posterior fossa, probably on the basis of redistribution. Asymmetric atrophy of the right cerebellum. The orbits are grossly normal. Paranasal sinuses and mastoid air cells are well aerated. Hyperostosis frontalis interna and prominent dural ossification along the anterior falx cerebri. Osseous structures are intact. CT/CT head/brain wo IV con IMPRESSION: 1. Acute intraparenchymal hematoma within the anterior left frontal lobe measuring 7.3 x 4.4 x 3.2 cm with surrounding vasogenic edema and associated mass effect including 4 mm rightward midline shift. Intraventricular dissection of hemorrhage with layering small volume blood products in the bilateral occipital horns. Trace subarachnoid blood products within the posterior fossa, probably on the basis of redistribution. No hydrocephalus. 2. Prominent extra-axial CSF space versus hypodense subdural collections along the undersurface of the tentorial leaflets with mild mass effect along the superior right cerebellum. 3. Background of chronic microangiopathy. Asymmetric atrophy of the right cerebellum. Findings of intraparenchymal hemorrhage were communicated to Dr. Jacobsen on 08/14/2022 at 1:10 AM.
[2022-08-13 20:51] VITALS: BP 150/52; PULSE 80; RESP 18; TEMP 36.7; O2SAT 97; BMI 22.3
--- NOTE | 2022-08-13 20:52 | ED.GENADULT ---
HPI - General Adult General Chief complaint: Weakness <NOELLE Isidro - Last Filed: 08/13/22 20:57> Stated complaint: vomiting/weak/incoherent <NOELLE Isidro - Last Filed: 08/13/22 20:57> Time Seen by Provider: 08/13/22 22:33 <NOELLE Isidro - Last Filed: 08/13/22 20:57> Source: patient and family <Sarah Jacobsen MD - Last Filed: 08/14/22 02:09> Mode of arrival: ambulatory <Sarah Jacobsen MD - Last Filed: 08/14/22 02:09> History of Present Illness HPI narrative: This is an 82-year-old female who has known atrial fibrillation and a history of NSTEMI and currently on anticoagulation who is brought in by her family for concerns regarding altered mental status and not providing appropriate answers. They do note that she has been nauseous and vomiting each weekend but not during the week and states that she lives by herself at her request and takes all of her own medications. Patient denies any acute complaints at this time. <Sarah Jacobsen MD - Last Filed: 08/14/22 02:09> Related Data Home medications: Previous Rx's Medication Instructions Recorded blood pressure monitor (Blood #1 ea 11/02/21 Pressure Kit) atorvastatin 40 mg tablet 40 mg PO DAILY 90 days #90 tabs 12/26/21 metoprolol succinate 50 mg 50 mg PO DAILY #90 tabs 04/30/22 tablet,extended release 24 hr meclizine 25 mg tablet 25 mg PO BID PRN dizziness #14 tabs 05/08/22 apixaban 5 mg tablet (Eliquis) 5 mg PO BID #180 tabs 05/31/22 hydrochlorothiazide 12.5 mg tablet 12.5 mg PO DAILY #90 tabs 07/05/22 <NOELLE Isidro - Last Filed: 08/13/22 20:57> Allergies/adverse reactions: Allergies Allergy/AdvReac Type Severity Reaction Status Date / Time No Known Allergies Allergy Verified 04/12/22 08:39 <NOELLE Isidro - Last Filed: 08/13/22 20:57> Review of Systems Review of Systems: Pertinent positives and negatives as stated in HPI <Sarah Jacobsen MD - Last Filed: 08/14/22 02:09> PMFSH Past Medical History Source: nursing notes reviewed <Sarah Jacobsen MD - Last Filed: 08/14/22 02:09> Medical History: Medical History A-fib Benign hematuria Cellulitis of right lower limb Essential hypertension Hypercholesterolemia Hypertension Hypertension Macular degeneration Non-rheumatic aortic stenosis Osteoporosis PAF (paroxysmal atrial fibrillation) Paroxysmal atrial fibrillation Vitamin D deficiency <NOELLE Isidro - Last Filed: 08/13/22 20:57> Surgical History: Surgical History H/O eye surgery H/O hemorrhoidectomy History of tonsillectomy Hx of appendectomy <NOELLE Isidro - Last Filed: 08/13/22 20:57> Family History Family History: Family History Father Cancer Mother Cancer <NOELLE Isidro - Last Filed: 08/13/22 20:57> Social History Social History: Social History Household Members: None Housing: House Do you presently have visiting nurse or other home services: No Alcohol intake: former Patient Tobacco Use Status: Never used Tobacco e-Cigarette/Vaping Use: Never Used Second Hand Smoke Exposure: No Advance Directives: No Advance Directives Information Provided: No service: No Current occupational status: retired Cognitive needs: No Hearing needs: No Vision needs: Yes <NOELLE Isidro - Last Filed: 08/13/22 20:57> Physical Exam ED Vital Signs: Vital Signs - 24 hr 08/13/22 20:51 08/13/22 23:14 08/14/22 01:47 Temperature 98.0 F Pulse Rate 80 85 152 H Respiratory Rate 18 16 20 Blood Pressure 150/52 H 145/60 H 95/49 L Pulse Oximetry 97 99 98 Oxygen Delivery Method Room Air Room Air Room Air BMI result Body Mass Index 22.3 <NOELLE Isidro Last Filed: 08/13/22 20:57> Vital Signs - 24 hr 08/13/22 20:51 04/03/23 23:14 08/14/22 01:47 Temperature 98.0 F Pulse Rate 80 85 152 H Respiratory Rate 18 16 20 Blood Pressure 150/52 H 145/60 H 95/49 L Pulse Oximetry 97 99 98 Oxygen Delivery Method Room Air Room Air Room Air BMI result Body Mass Index 22.3 VITAL SIGNS: Reviewed. GENERAL: Elderly, fragile, in no acute distress. HEAD: Normocephalic/atraumatic EYES: PERRLA, EOMI LUNGS: Good inspiratory effort with decreased breath sounds in the right base, No adventitious sounds or accessory muscle use. SpO2<99> CARDIOVASCULAR: Regular rate and rhythm without noted murmurs, no JVD or lower extremity edema. ABDOMEN: Soft, non-tender, non-distended with bowel sounds. MUSCULOSKELETAL: No tenderness, deformities, or effusions noted on gross inspection. EXTREMITIES: No cyanosis, clubbing or edema; RIGHT LOWER EXTREMITY: There is pain on palpation over the anterior aspect of the right tibia otherwise neurovascularly intact SKIN: Inspection of the skin reveals no rashes NEUROLOGIC: Alert and oriented x 3. Strength and sensation to light touch were grossly intact x 4, nerves 2 through 12 grossly intact, no facial asymmetry, no pronator drift, difficulty forming answers to specific questions <Sarah Jacobsen MD - Last Filed: 08/14/22 02:09> Course Course Course Narrative: RME - 82 yo female with history of afib on Eliquis, HTN, HLD, anemia, vertigo, peripheral neuropathy who presents to the ER from home with her family for evaluation of weakness and vomiting that started this afternoon. She was noticed to be mumbling and incoherent earlier this afternoon. She reports ongoing nausea and weakness. VSS in triage. She appears pale. Harsh murmur on exam, soft abdomen. Plan for labs, CXR, UA and EKG. <NOELLE Isidro - Last Filed: 08/13/22 20:57> Medications Administered Discontinued Medications Generic Name Dose Route Start Last Admin Trade Name Freq PRN Reason Stop Dose Admin Sodium Chloride 500 mls @ 999 mls/hr 08/13/22 23:30 08/14/22 01:00 Ns IV 08/14/22 00:00 Infused .Q31M [place] Infusion Metoprolol Tartrate 5 mg 08/14/22 01:34 08/14/22 01:39 Metoprolol Tartrate 5 Mg/5 Ml Vial IVPUSH 08/14/22 01:35 5 mg ONCE ONE Administration Ondansetron HCl 4 mg 08/13/22 23:26 08/14/22 00:05 Ondansetron Hcl 4 Mg/2 Ml Vial IVPUSH 08/13/22 23:27 4 mg ONCE ONE Administration <NOELLE Isidro - Last Filed: 08/13/22 20:57> Medications Administered Discontinued Medications Generic Name Dose Route Start Last Admin Trade Name Trini PRN Reason Stop Dose Admin Sodium Chloride 500 mls @ 999 mls/hr 08/13/22 23:30 08/14/22 01:00 Ns IV 08/14/22 00:00 Infused .Q31M [place] Infusion Metoprolol Tartrate 5 mg 08/14/22 01:34 08/14/22 01:39 Metoprolol Tartrate 5 Mg/5 Ml Vial IVPUSH 08/14/22 01:35 5 mg ONCE ONE Administration Ondansetron HCl 4 mg 08/13/22 23:26 08/14/22 00:05 Ondansetron Hcl 4 Mg/2 Ml Vial IVPUSH 08/13/22 23:27 4 mg ONCE ONE Administration <Sarah Jacobsen MD - Last Filed: 08/14/22 02:09> Medical Decision Making Medical Decision Making MDM Narrative: 82-year-old female with history and clinical presentation not entirely clear but does appear to have some form of aphasia, will obtain urine sample as review of all other investigations demonstrates chronically stable values. The daughter did show a picture of significant ecchymosis to the right lower extremity approximately 2 weeks ago and her mother said that pt reported a bumped on her leg. There is no evidence of that ecchymosis today. Will provide IV fluid, obtain PT/INR and scan the head and chest. 0058: I spoke with transfer center at [facility] who will page Neurology. 0105: I discussed the CT of the head report which demonstrates interventricular extension with vasogenic edema and layering within the bilateral occipital ventricles and associated 4 mm shift. 0108: I further discussed the case with [facility] and will page out to neuro stroke for hemorrhagic stroke. 0122: I spoke with Dr. Hodges of the neuro ICU and he is in agreement regarding reversal at this time given the length of time that is postulated it has been since patient's last Eliquis. But he accepts transfer to the neuro ICU. 0130: Called in by nursing as patient went in to atrial fibrillation with RVR, she still response to verbal commands and follows commands. Twelve lead EKG demonstrates atrial fibrillation with RVR at a rate of 149. Will attempt Lopressor at this time. Patient received a total of 10 mg of Lopressor IV push. She otherwise remains hemodynamically stable in responsive, following commands, moving all extremities. <Sarah Jacobsen MD - Last Filed: 08/14/22 02:09> Differential Diagnosis Please see the discussion above <Sarah Jacobsen MD - Last Filed: 08/14/22 02:09> Consult Healthcare Provider Please see the discussion above <Sarah Jacobsen MD - Last Filed: 08/14/22 02:09> Lab Data Please see the discussion above <Sarah Jacobsen MD - Last Filed: 08/14/22 02:09> Result Diagrams: 08/13/22 21:18 08/13/22 21:18 <NOELLE Isidro - Last Filed: 08/13/22 20:57> Labs: Lab Results 08/13/22 08/13/22 08/13/22 Range/Units 21:18 21:18 21:18 WBC 10.1 (4.8-10.8) X10*3/uL RBC 3.71 L (4.20-5.50) X10*6/uL Hgb 11.1 L (12.0-16.0) g/dl Hct 33.7 L (37.0-47.0) % MCV 90.8 (80.0-98.0) fL MCH 29.9 (27.0-33.0) pg MCHC 32.9 (31.0-35.0) g/dl RDW 12.5 (11.0-16.0) % Plt Count 162 (160-400) X10*3/uL MPV 10.7 (9.4-12.3) fL Immature Gran % (Auto) 0.3 (0.0-0.4) % Neut % (Auto) 88.4 H (45-73) % Lymph % (Auto) 7.6 L (20-40) % Richardson % (Auto) 3.3 (2-11) % Eos % (Auto) 0.1 (0-4) % Baso % (Auto) 0.3 (0-2) % Lymph # (Auto) 0.8 L (1.2-4.9) X10*3/uL Richardson # (Auto) 0.3 (0.1-1.2) X10*3/uL Eos # (Auto) 0.0 (0.0-0.4) X10*3/uL Baso # (Auto) 0.0 (0.0-0.2) X10*3/uL Abs Immat Gran (auto) 0.03 (0.00-0.03) X10*3/uL Absolute Neuts (auto) 9.0 H (2.0-8.3) x10*3/uL Absolute Nucleated RBC 0.000 (0.0-0.012) X10*3/uL Nucleated RBC % (auto) 0.0 (0.0-0.2) /100WBC PT (10.0-13.1) SEC INR (0.9-1.1) Sodium 139 (135-145) mmol/L Potassium 4.3 (3.3-5.1) mmol/L Chloride 105 (96-108) mmol/L Carbon Dioxide 25 (22-29) mmol/L Anion Gap 13 (12-20) BUN 22 H (9-16) mg/dL Creatinine 0.81 (0.5-1.4) mg/dL Estim Creat Clear Calc 46.2 Estimated GFR > 60 Random Glucose 152 H (60-115) mg/dL Calcium 8.9 D (8.4-10.2) mg/dL Magnesium 1.8 (1.6-2.6) mg/dL Total Bilirubin 1.1 H (0.0-1.0) mg/dL Direct Bilirubin 0.4 (0.0-0.5) mg/dL AST 22 (5-31) U/L ALT 20 (0-31) U/L Alkaline Phosphatase 109 (39-117) U/L Total Protein 6.4 L (6.5-8.0) g/dL Albumin 4.0 (3.5-5.0) g/dL TSH 0.61 (0.32-4.0) uIU/mL Urine Color Urine Appearance Urine pH (5.0-9.0) Ur Specific [place] (1.005-1.025) Urine Protein (Neg-Trace) mg/dL Urine Glucose (UA) (Negative) mg/dL Urine Ketones (Negative) mg/dL Urine Blood (Negative) Urine Nitrite (Negative) Ur Leukocyte Esterase (Negative) Urine RBC (0-2) /HPF Urine WBC (0-5) /HPF Ur Squamous Epith Cells (0-2) /HPF Urine Bacteria (None Seen) Hyaline Casts (0-2) /LPF COVID-19 (TRANG) (Negative) COVID-19 Clin Com Influenza Type A (JEROMY) Negative (Negative) Influenza Type B (JEROMY) Negative (Negative) Influenza A & B Note See Note 08/13/22 08/14/22 08/14/22 Range/Units 21:18 00:24 00:28 WBC (4.8-10.8) X10*3/uL RBC (4.20-5.50) X10*6/uL Hgb (12.0-16.0) g/dl Hct (37.0-47.0) % MCV (80.0-98.0) fL MCH (27.0-33.0) pg MCHC (31.0-35.0) g/dl RDW (11.0-16.0) % Plt Count (160-400) X10*3/uL MPV (9.4-12.3) fL Immature Gran % (Auto) (0.0-0.4) % Neut % (Auto) (45-73) % Lymph % (Auto) (20-40) % Richardson % (Auto) (2-11) % Eos % (Auto) (0-4) % Baso % (Auto) (0-2) % Lymph # (Auto) (1.2-4.9) X10*3/uL Richardson # (Auto) (0.1-1.2) X10*3/uL Eos # (Auto) (0.0-0.4) X10*3/uL Baso # (Auto) (0.0-0.2) X10*3/uL Abs Immat Gran (auto) (0.00-0.03) X10*3/uL Absolute Neuts (auto) (2.0-8.3) x10*3/uL Absolute Nucleated RBC (0.0-0.012) X10*3/uL Nucleated RBC % (auto) (0.0-0.2) /100WBC PT 12.9 (10.0-13.1) SEC INR 1.1 (0.9-1.1) Sodium (135-145) mmol/L Potassium (3.3-5.1) mmol/L Chloride (96-108) mmol/L Carbon Dioxide (22-29) mmol/L Anion Gap (12-20) BUN (9-16) mg/dL Creatinine (0.5-1.4) mg/dL Estim Creat Clear Calc Estimated GFR Random Glucose (60-115) mg/dL Calcium (8.4-10.2) mg/dL Magnesium (1.6-2.6) mg/dL Total Bilirubin (0.0-1.0) mg/dL Direct Bilirubin (0.0-0.5) mg/dL AST (5-31) U/L ALT (0-31) U/L Alkaline Phosphatase (39-117) U/L Total Protein (6.5-8.0) g/dL Albumin (3.5-5.0) g/dL TSH (0.32-4.0) uIU/mL Urine Color Yellow Urine Appearance Clear Urine pH 6.0 (5.0-9.0) Ur Specific [place] 1.025 (1.005-1.025) Urine Protein Negative (Neg-Trace) mg/dL Urine Glucose (UA) Negative (Negative) mg/dL Urine Ketones Trace (Negative) mg/dL Urine Blood Trace H (Negative) Urine Nitrite Negative (Negative) Ur Leukocyte Esterase Negative (Negative) Urine RBC 11-20 H (0-2) /HPF Urine WBC 0-5 (0-5) /HPF Ur Squamous Epith Cells 0-2 (0-2) /HPF Urine Bacteria None Seen (None Seen) Hyaline Casts 0-2 (0-2) /LPF COVID-19 (TRANG) Negative (Negative) COVID-19 Clin Com See Note Influenza Type A (JEROMY) (Negative) Influenza Type B (JEROMY) (Negative) Influenza A & B Note <NOELLE Isidro - Last Filed: 08/13/22 20:57> Lab Results 08/13/22 08/13/22 08/13/22 Range/Units 21:18 21:18 21:18 WBC 10.1 (4.8-10.8) X10*3/uL RBC 3.71 L (4.20-5.50) X10*6/uL Hgb 11.1 L (12.0-16.0) g/dl Hct 33.7 L (37.0-47.0) % MCV 90.8 (80.0-98.0) fL MCH 29.9 (27.0-33.0) pg MCHC 32.9 (31.0-35.0) g/dl RDW 12.5 (11.0-16.0) % Plt Count 162 (160-400) X10*3/uL MPV 10.7 (9.4-12.3) fL Immature Gran % (Auto) 0.3 (0.0-0.4) % Neut % (Auto) 88.4 H (45-73) % Lymph % (Auto) 7.6 L (20-40) % Richardson % (Auto) 3.3 (2-11) % Eos % (Auto) 0.1 (0-4) % Baso % (Auto) 0.3 (0-2) % Lymph # (Auto) 0.8 L (1.2-4.9) X10*3/uL Richardson # (Auto) 0.3 (0.1-1.2) X10*3/uL Eos # (Auto) 0.0 (0.0-0.4) X10*3/uL Baso # (Auto) 0.0 (0.0-0.2) X10*3/uL Abs Immat Gran (auto) 0.03 (0.00-0.03) X10*3/uL Absolute Neuts (auto) 9.0 H (2.0-8.3) x10*3/uL Absolute Nucleated RBC 0.000 (0.0-0.012) X10*3/uL Nucleated RBC % (auto) 0.0 (0.0-0.2) /100WBC PT (10.0-13.1) SEC INR (0.9-1.1) Sodium 139 (135-145) mmol/L Potassium 4.3 (3.3-5.1) mmol/L Chloride 105 (96-108) mmol/L Carbon Dioxide 25 (22-29) mmol/L Anion Gap 13 (12-20) BUN 22 H (9-16) mg/dL Creatinine 0.81 (0.5-1.4) mg/dL Estim Creat Clear Calc 46.2 Estimated GFR > 60 Random Glucose 152 H (60-115) mg/dL Calcium 8.9 D (8.4-10.2) mg/dL Magnesium 1.8 (1.6-2.6) mg/dL Total Bilirubin 1.1 H (0.0-1.0) mg/dL Direct Bilirubin 0.4 (0.0-0.5) mg/dL AST 22 (5-31) U/L ALT 20 (0-31) U/L Alkaline Phosphatase 109 (39-117) U/L Total Protein 6.4 L (6.5-8.0) g/dL Albumin 4.0 (3.5-5.0) g/dL TSH 0.61 (0.32-4.0) uIU/mL Urine Color Urine Appearance Urine pH (5.0-9.0) Ur Specific [place] (1.005-1.025) Urine Protein (Neg-Trace) mg/dL Urine Glucose (UA) (Negative) mg/dL Urine Ketones (Negative) mg/dL Urine Blood (Negative) Urine Nitrite (Negative) Ur Leukocyte Esterase (Negative) Urine RBC (0-2) /HPF Urine WBC (0-5) /HPF Ur Squamous Epith Cells (0-2) /HPF Urine Bacteria (None Seen) Hyaline Casts (0-2) /LPF COVID-19 (TRANG) (Negative) COVID-19 Clin Com Influenza Type A (JEROMY) Negative (Negative) Influenza Type B (JEROMY) Negative (Negative) Influenza A & B Note See Note 08/13/22 08/14/22 08/14/22 Range/Units 21:18 00:24 00:28 WBC (4.8-10.8) X10*3/uL RBC (4.20-5.50) X10*6/uL Hgb (12.0-16.0) g/dl Hct (37.0-47.0) % MCV (80.0-98.0) fL MCH (27.0-33.0) pg MCHC (31.0-35.0) g/dl RDW (11.0-16.0) % Plt Count (160-400) X10*3/uL MPV (9.4-12.3) fL Immature Gran % (Auto) (0.0-0.4) % Neut % (Auto) (45-73) % Lymph % (Auto) (20-40) % Richardson % (Auto) (2-11) % Eos % (Auto) (0-4) % Baso % (Auto) (0-2) % Lymph # (Auto) (1.2-4.9) X10*3/uL Richardson # (Auto) (0.1-1.2) X10*3/uL Eos # (Auto) (0.0-0.4) X10*3/uL Baso # (Auto) (0.0-0.2) X10*3/uL Abs Immat Gran (auto) (0.00-0.03) X10*3/uL Absolute Neuts (auto) (2.0-8.3) x10*3/uL Absolute Nucleated RBC (0.0-0.012) X10*3/uL Nucleated RBC % (auto) (0.0-0.2) /100WBC PT 12.9 (10.0-13.1) SEC INR 1.1 (0.9-1.1) Sodium (135-145) mmol/L Potassium (3.3-5.1) mmol/L Chloride (96-108) mmol/L Carbon Dioxide (22-29) mmol/L Anion Gap (12-20) BUN (9-16) mg/dL Creatinine (0.5-1.4) mg/dL Estim Creat Clear Calc Estimated GFR Random Glucose (60-115) mg/dL Calcium (8.4-10.2) mg/dL Magnesium (1.6-2.6) mg/dL Total Bilirubin (0.0-1.0) mg/dL Direct Bilirubin (0.0-0.5) mg/dL AST (5-31) U/L ALT (0-31) U/L Alkaline Phosphatase (39-117) U/L Total Protein (6.5-8.0) g/dL Albumin (3.5-5.0) g/dL TSH (0.32-4.0) uIU/mL Urine Color Yellow Urine Appearance Clear Urine pH 6.0 (5.0-9.0) Ur Specific [place] 1.025 (1.005-1.025) Urine Protein Negative (Neg-Trace) mg/dL Urine Glucose (UA) Negative (Negative) mg/dL Urine Ketones Trace (Negative) mg/dL Urine Blood Trace H (Negative) Urine Nitrite Negative (Negative) Ur Leukocyte Esterase Negative (Negative) Urine RBC 11-20 H (0-2) /HPF Urine WBC 0-5 (0-5) /HPF Ur Squamous Epith Cells 0-2 (0-2) /HPF Urine Bacteria None Seen (None Seen) Hyaline Casts 0-2 (0-2) /LPF COVID-19 (TRANG) Negative (Negative) COVID-19 Clin Com See Note Influenza Type A (JEROMY) (Negative) Influenza Type B (JEROMY) (Negative) Influenza A & B Note <Sarah Jacobsen MD - Last Filed: 08/14/22 02:09> Independent Interpretation I performed an independent interpretation of an: EKG <Sarah Jacobsen MD - Last Filed: 08/14/22 02:09> Interpretation: Normal sinus rhythm, HR -73, no STEMI, LA/QRS/QTC are within normal limits. <Sarah Jacobsen MD - Last Filed: 08/14/22 02:09> Radiology Impression Radiologist Impression: My interpretation is in agreement with radiology's impression of the imaging studies. <Saarh Jacobsen MD - Last Filed: 08/14/22 02:09> External Record Review External record reviewed: Prior outpatient labs <Sarah Jacobsen MD - Last Filed: 08/14/22 02:09> Chronic Conditions pAFib, CAD <Sarah Jacobsen MD - Last Filed: 08/14/22 02:09> Discharge Plan Discharge Clinical Impression: Hemorrhagic stroke, Aphasia <NOELLE Isidro - Last Filed: 08/13/22 20:57> Patient Disposition: [facility] <NOELLE Isdiro - Last Filed: 08/13/22 20:57> Transfer Details: Hemorrhagic stroke <NOELLE Isidro - Last Filed: 08/13/22 20:57> Hemorrhagic stroke <Sarah Jacobsen MD - Last Filed: 08/14/22 02:09> Prescriptions: No Action metoprolol succinate 50 mg tablet extended release 24 hr 50 mg PO DAILY Qty: 90 3RF meclizine 25 mg tablet 25 mg PO BID PRN (Reason: dizziness) Qty: 14 0RF Eliquis 5 mg tablet 5 mg PO BID Qty: 180 3RF hydrochlorothiazide 12.5 mg tablet 12.5 mg PO DAILY Qty: 90 3RF (DME) blood pressure monitor [Blood Pressure Kit] Kit See Rx Instructions .ROUTE .MEDSUPPLY Qty: 1 0RF Rx Instructions: As directed atorvastatin 40 mg tablet 40 mg PO DAILY 90 Days Qty: 90 3RF <NOELLE Isidro - Last Filed: 08/13/22 20:57>
--- NOTE | 2022-08-13 20:54 | ECG_ITS ---
Test Reason : weakness Blood Pressure : / mmHG Vent. Rate : 073 BPM Atrial Rate : 073 BPM P-R Int : 144 ms QRS Dur : 082 ms QT Int : 404 ms P-R-T Axes : 062 014 041 degrees QTc Int : 445 ms Normal sinus rhythm Normal ECG When compared with ECG of 14-OCT-2021 12:54, No significant change was found Referred By: Allison Chery Electronically Signed By:Nicola Mon
[2022-08-13 21:23] LABS: MANUAL DIFF FLAG NO
[2022-08-13 21:39] LABS: COVID-19 Test Negative (Negative); IDNOW Serial# 08D9AD1C; IDNOW Serial# 9DB6401D; Influenza A Negative (Negative); Influenza B2 Negative (Negative)
[2022-08-13 21:40] LABS: Basophils Percent Auto 0.3 % (0-2); Eosinophils Percent Auto 0.1 % (0-4); Hematocrit 33.7 % (37.0-47.0); Hemoglobin 11.1 g/dl (12.0-16.0); Imm Gran Abs Auto 0.03 X10*3/uL (0.00-0.03); Imm Gran Pct Auto 0.3 % (0.0-0.4); Lymphocytes Absolute Auto 0.8 X10*3/uL (1.2-4.9); Lymphocytes Percent Auto 7.6 % (20-40); Mean Corpuscular HGB Conc 32.9 g/dl (31.0-35.0); Mean Corpuscular Hemoglobin 29.9 pg (27.0-33.0); Mean Corpuscular Volume 90.8 fL (80.0-98.0); Mean Platelet Volume 10.7 fL (9.4-12.3); Monocytes Absolute Auto 0.3 X10*3/uL (0.1-1.2); Monocytes Percent Auto 3.3 % (2-11); Neutrophils Percent Auto 88.4 % (45-73); Platelet Count 162 X10*3/uL (160-400); Red Blood Count 3.71 X10*6/uL (4.20-5.50); Red Cell Distribution Width 12.5 % (11.0-16.0); White Blood Count 10.1 X10*3/uL (4.8-10.8)
[2022-08-13 21:48] LABS: Alanine Aminotransferase 20 U/L (0-31); Alkaline Phosphatase 109 U/L (39-117); Anion Gap 13 (12-20); Aspartate Amino Transferase 22 U/L (5-31); Bilirubin Direct 0.4 mg/dL (0.0-0.5); Bilirubin Total 1.1 mg/dL (0.0-1.0); Blood Urea Nitrogen 22 mg/dL (9-16); Calcium 8.9 mg/dL (8.4-10.2); Carbon Dioxide 25 mmol/L (22-29); Chloride 105 mmol/L (96-108); Creatinine Clr Calc Pharmacy 46.2; Estimated Glomerular Filt Rate > 60; Glucose Random 152 mg/dL (60-115); Magnesium 1.8 mg/dL (1.6-2.6); Potassium 4.3 mmol/L (3.3-5.1); Sodium 139 mmol/L (135-145); Total Protein 6.4 g/dL (6.5-8.0)
[2022-08-13 22:10] LABS: TSH reflex Free T4 0.61 uIU/mL (0.32-4.0)
[2022-08-13 23:14] VITALS: BP 145/60; PULSE 85; RESP 16; O2SAT 99
[2022-08-14] MEDS: 0.9 % Sodium Chloride 500 ML 999 ML IV (00:05)
[2022-08-14] MEDS: ondansetron HCL 4 MG/2 ML VIAL IVPUSH (00:05)
[2022-08-14 00:32] LABS: Appearance Urine Clear; Color Urine Yellow; Glucose Urine UA Negative (Negative); Leukocyte Esterase Urine Negative (Negative); Nitrite Urine Negative (Negative); Specific Gravity - Urine 1.025 (1.005-1.025); UMIC TRIGGER UACC YES; Urine Blood Trace (Negative); Urine Ketones Trace mg/dL (Negative); Urine Protein Negative (Neg-Trace)
[2022-08-14 00:34] LABS: Bacteria Urine None Seen (None Seen); Hyaline Casts Urine 0-2 /LPF (0-2); Squamous Epithelial Cell Urine 0-2 /HPF (0-2); WBC Urine 0-5 /HPF (0-5)
[2022-08-14 00:37] LABS: INTERNATIONAL NORM RATIO 1.1 (0.9-1.1); Prothrombin Time 12.9 SEC (10.0-13.1)
--- NOTE | 2022-08-14 00:54 | MHC.EDTECH ---
Call out to [facility] @0080 spoke to Taylor from the transfer line
--- NOTE | 2022-08-14 01:30 | ECG_ITS ---
Test Reason : TACHYCrdia Blood Pressure : / mmHG Vent. Rate : 149 BPM Atrial Rate : 000 BPM P-R Int : 000 ms QRS Dur : 074 ms QT Int : 302 ms P-R-T Axes : 000 001 092 degrees QTc Int : 475 ms Atrial fibrillation with rapid ventricular response ST & T wave abnormality, consider lateral ischemia Abnormal ECG When compared with ECG of 13-AUG-2022 21:09, Atrial fibrillation has replaced Sinus rhythm Vent. rate has increased BY [address] now depressed in Inferior leads ST now depressed in Anterior leads T wave inversion now evident in Lateral leads Referred By: Sarah Jacobsen Electronically Signed By:Nicola Mon
[2022-08-14] MEDS: Metoprolol Tartrate 5 MG/5 ML VIAL IVPUSH ×2 (01:39→02:19)
[2022-08-14 01:47] VITALS: BP 95/49; PULSE 152; RESP 20; O2SAT 98
--- NOTE | 2022-08-14 01:47 | PC.NURSE ---
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 pt very asleep and lethargic. responds to verbal and painful stimuli appropriately. ekg done. 5mg lopressor administered for rate control. will CTM closely
[2022-08-14 02:09] VITALS: BP 91/57; PULSE 140
[2022-08-14] MEDS: Norepinephrine Bitartrate/D5W 8 MG/250 ML PLAST..BAG 5.53 MG IV (02:09)
--- NOTE | 2022-08-14 02:10 | PC.NURSE ---
pt HR in A fib anywhere from 120-150. BP 94/50, 91/57. provider ordering levofed to bring up blood pressure in order to administer lopressor for rate control. this order verified with provider and 2 RN's. provider OK with giving levofed despite HR up to 160. per provider's verbal order, will administer levofed until achieved systolic BP > 100 in order to administer lopressor.
--- NOTE | 2022-08-14 02:13 | PC.NURSE ---
MD Jacobsen requesting nursing administer Levophed for hypotension. Pts HR noted to be 120-160 bpm in a rapid Afib. Pt previously medicated by Zoila KIMBLE with Metoprolol which caused hypotension 91/57 with a MAP of 66. Per Delmar, to administer Levophed for BP control to allow for additional administration of Metoprolol to control rapid Afib. This RN questioning request as per protocol, to hold Levophed if HR >120. MD Jacobsen aware and continues to request administration of Levophed. Primary RN aware.
[2022-08-14 02:14] VITALS: BP 98/63; PULSE 139; RESP 18; O2SAT 96
--- NOTE | 2022-08-14 02:18 | MHC.EDTECH ---
is accepting [facility] room 222 Nurse to Nurse [phone]
--- NOTE | 2022-08-14 02:19 | MHC.EDTECH ---
call out to [facility] @ [phone] to book ALS STAT transport to [facility] spoke to Bora who informed me an ALS truck will be here once the ALS truck is done on a call recieved a call from Bora at [facility] dispatch @[phone] informed me ALS truck is en route
[2022-08-14 02:23] VITALS: BP 100/73; PULSE 88
--- NOTE | 2022-08-14 02:33 | PC.NURSE ---
nurse to nurse report attempted x 2 to [facility] RN @[phone]. ambulance here now to transport patient to [facility] [place] neuro ICU
--- NOTE | 2022-08-14 02:34 | PC.NURSE ---
per MD Strong HR down to 80s, BP > 100 systolic, stop levofed @02:23
--- NOTE | 2022-08-14 02:46 | PC.NURSE ---
nurse to nurse report given to neuro icu nurse @02:46
== END 2022-08-14 02:48 | disposition short-term general hospital (02) ==
PROVIDERS: Physician Assistant; Emergency Provider Student in an Organized Health Care Education/Training Program; PCP Internal Medicine
DX: I62.9 Nontraumatic intracranial hemorrhage, unspecified (principal); R47.01 Aphasia; I48.91 Unspecified atrial fibrillation; I10 Essential (primary) hypertension; M54.6 Pain in thoracic spine; R00.0 Tachycardia, unspecified; R53.1 Weakness; R11.10 Vomiting, unspecified; R41.82 Altered mental status, unspecified; Z20.822 Contact with and (suspected) exposure to COVID-19; Z20.828 Contact with and (suspected) exposure to other viral communicable diseases; Z79.01 Long term (current) use of anticoagulants; Z79.899 Other long term (current) drug therapy
CPT/HCPCS: 36415; 70450; 71045; 71250; 80048; 80076; 81001; 83735; 84443; 85025; 85610; 87502; 87635; 93005; 96361; 96374; 96375; 96376; 99285; J2405